=== PATIENT | male | born 1955 | race Caucasian/White ===

== ENCOUNTER 2019-11-15 04:14 | Outpatient (CLI) | payer BC, SELFPAY ==
[2019-11-17 11:43] LABS: Testosterone, Total 72 ng/dL (240-950)
== END 2019-11-15 04:34 ==
PROVIDERS: PCP Family Medicine; Visit Provider Internal Medicine Hematology & Oncology
DX: C61 Malignant neoplasm of prostate (principal)
CPT/HCPCS: 36415; 84403; 84153

== ENCOUNTER 2020-02-23 04:14 | Outpatient (CLI) | payer BC, SELFPAY ==
[2020-02-23 22:22] LABS: PSA, Diagnostic 2.6 ng/mL (0.0-4.5)
== END 2020-02-23 04:34 ==
PROVIDERS: PCP Family Medicine; Visit Provider Internal Medicine Hematology & Oncology
DX: C61 Malignant neoplasm of prostate (principal)
CPT/HCPCS: 36415; 84153

== ENCOUNTER 2020-04-06 12:23 | Outpatient (REF) | payer BC, SELFPAY ==
--- NOTE | 2020-04-06 11:30 | PAPNONF_PTH ---
PATIENT: Arpan Yeh LOC: [facility] U#:[id number] AGE/SX: 64/M ROOM: RE04/06/[address]: Logan Pemberton MD : [id number] BED: DIS: 04/06/2020 SPEC #: [id number] RECD: 04/06/20 17:57 STATUS: ANETA REQ #: [id number] KELSEY: 04/06/20 11:[address]: Logan Pemberton DEPT: [facility] Cytology RECD BY: Miroslava Raymodn ENTERED: 04/06/20 17:58 SP TYPE: JOSE ABREU DR: Wilfrido Parisi Tissues: 1 - BODY FLUID CYTO(SPUTUM/URINE)[facility] Procedures: BODY FLUID CYTO(URINE/SPUTUM) Comments: [id number] (TOTAL VOLUME = 30 ml's) (30 ml's URINE & 30 ml's CYTOLYT ADDED)
[2020-04-06 17:39] LABS: Bilirubin Small (Negative); Blood Large (Negative); Clarity Cloudy (Clear); Glucose Negative (Negative); Ketones Negative (Negative); Leukocyte Esterase Trace (Negative); Nitrite Positive (Negative); Urobilinogen 0.2 EU/dL (Up TO 0.2)
[2020-04-06 17:40] LABS: C & S Indicated? C&S Done As Ordered; RBC >50 HPF (0-2)
== END 2020-04-06 12:43 ==
LOC: LBN 12:23
PROVIDERS: PCP Family Medicine; Referring Provider Nurse Practitioner Gerontology; Visit Provider Urology
DX: R31.0 Gross hematuria (principal); C61 Malignant neoplasm of prostate
CPT/HCPCS: 81003; 81015; 87086; 88104

== ENCOUNTER 2020-04-12 01:20 | Outpatient (CLI) | payer BC, SELFPAY ==
--- NOTE | 2020-04-12 07:00 | DI.CT_ITS ---
EXAM: CT ABDOMEN PELVIS WO/W CLINICAL HISTORY: gross hematuria,R31.0,PROSTATE CA,C61 TECHNIQUE: Imaging Protocol: Axial computed tomography images with coronal and sagittal reformatted images were created and reviewed CONTRAST MATERIAL: Intravenous: Omnipaque 350 Contrast volume:structured data in ml Oral: yes / no COMPARISON: No exams were available for comparison FINDINGS: ABDOMEN: Lung Bases: Normal where visualized. Liver: Normal density. There is a 2.8 by 2 cm hypodense mass seen in the medial segment of the left l obe of the liver. There are several hypodense lesion seen within the liver. They are too small for further characterization but likely reflect small cysts. There is a 2.1 cm cyst in the anterior segm ent of the right lobe of the liver. Portal, Superior Mesenteric, and Splenic Veins: Unremarkable. Gallbladder and Biliary Tract: No radiodense calculus or dilation. Pancreas: Normal density, no abnormal calcifications or inflammatory process. Spleen: Normal. Adrenals: No masses seen. Kidneys: Please see below in the urinary bladder section. No nephrolithiasis. No renal mass. Abdominal Aorta: Abdominal portion non-dilated. Atherosclerosis. Bowel: No evidence of obstruction. There is colonic diverticulosis. There is concentric wall thicke ashley extending from the mid descending colon to the mid sigmoid colon. No evidence of acute appendic itis. Peritoneal Cavity: Please see below in the urinary bladder section. Lymph Nodes: There are enlarged pelvic and inguinal lymph nodes. There is a 2.1 x 3.2 cm left externa l iliac lymph node. The largest inguinal lymph node is on the right and measures 3.0 x 1.8 cm. Bones: There is sclerosis of the posterior aspect of the right 12th rib suspicious for metastasis. De generative changes are seen in the spine. Soft Tissues: Bilateral fat containing inguinal hernia are present. PELVIS: Bladder: The prostate gland is markedly enlarged and impinges upon the base of the urinary bladder. T he prostate gland extends to the pelvic sidewalls. There is marked thickening of the wall of the urin mary bladder secondary to bladder outlet obstruction. There is resultant marked bilateral hydronephros is with delayed enhancement of the kidneys. Bladder diverticula are present. There is infiltration of the soft tissue surrounding the urinary bladder and prostate gland. Reproductive Organs: Please see the urinary bladder section. Lymph Nodes: Please see above. Bones: Please see above. IMPRESSION: 1. Marked enlargement of the prostate gland with impingement onto the base of the urinary bladder. Th e finding is consistent with the patient's known history of prostate carcinoma. 2. Due to the enlarged prostate gland, there is marked thickening of the wall of the urinary bladder and bladder diverticula secondary to bladder outlet obstruction. There is also resultant multiple mar ked bilateral hydronephrosis and delayed enhancement of the kidneys. Inflammatory stranding is seen a round the urinary bladder and an acute cystitis cannot be excluded. 3. Pelvic and inguinal adenopathy suggesting metastatic disease. 4. Sclerotic posterior right 12th rib suspicious for metastasis. 5. 2.8 x 2 cm hypodense lesion in the left lobe of the liver suspicious for metastatic disease. 6. Thickening of the wall of the colon from the discs mid descending colon to the mid sigmoid colon. Differential considerations include infectious or inflammatory colitis or acute diverticulitis. Invol vement related to the adjacent urinary bladder process cannot be excluded. RADIATION DOSE DELIVERED: Total DLP Total DLP DATA REPOSITORY: All CT scans at this facility are submitted to the National Radiology Data Registry (NRDR) Dose Index Registry (DIR) with the [employer] (ACR). RADIATION OPTIMIZATION: All CT scans at this facility use at least one of these dose optimization te chniques: automated exposure control; mA and/or kV adjustment per patient size (includes targeted exa ms where dose is matched to clinical indication); or iterative reconstruction.
[2020-04-12 08:00] LABS: CREATININE 1.25 mg/dL (0.70-1.30); Estimated GFR 58.53 (mL/min/1.73m2)
[2020-04-12] MEDS: Omnipaque 350 MG/ML 100 ML BTL IJ (08:41)
== END 2020-04-12 01:40 ==
PROVIDERS: PCP Family Medicine; Visit Provider Nurse Practitioner Gerontology
DX: R31.0 Gross hematuria (principal); C61 Malignant neoplasm of prostate; R59.0 Localized enlarged lymph nodes
CPT/HCPCS: 74178; 82565; J3490

== ENCOUNTER 2020-04-13 14:45 | Outpatient (CLI) | payer BC, SELFPAY ==
[2020-04-16 11:28] LABS: SARS-CoV-2 RNA Not Detected (NotDetected); SARS-CoV-2 RNA Source Nasal/Nares
== END 2020-04-13 15:05 ==
PROVIDERS: PCP Family Medicine; Visit Provider Nurse Practitioner Gerontology
DX: Z01.818 Encounter for other preprocedural examination (principal); Z11.59 Encounter for screening for other viral diseases
CPT/HCPCS: U0003

== ENCOUNTER 2020-04-17 09:14 | Day surgery (SDC) | payer BC, SELFPAY ==
[2020-04-17 09:20] VITALS: BP 144/83; PULSE 97; RESP 18; TEMP 36.3; O2SAT 98
--- NOTE | 2020-04-17 09:57 | W.PM.HP.N ---
Date of service: 04/17/20 Time of Service: 09:58 Assessment and Plan Assessment and plan (1) Gross hematuria: Status: Acute Assessment and plan: We will plan on a cystoscopy, clot evacuation and fulguration of bleeding sites. With the hydronephrosis seen on his most recent CT scan, it will be interesting to see if I can identify the ureteral orifices cystoscopically. If the hydronephrosis is a new finding (I do not have access to his previous [facility] scans at this time) and I can not find the orifices, he would need to consider placement of bilateral nephrostomy tubes. (2) Prostate cancer: Status: Chronic History of Present Illness History of Present Illness Chief Complaint: Hematuria He presents for cystoscopy with fulguration of bleeding. He espinosa Narrative: Mr. Rao Culver) is a 64 y/o male referred from his PCP to establish care for a local urologist. He has a history of prostate cancer and has been under the care of Dr. Esparza ([facility] hem/onc) and Dr. Topete ([facility] urology). His urology history started last year with difficulties voiding in the spring. He presented with urinary retention and failed medication management and voiding trial. He underwent a TURP in October [address] Topete. Originally the chips from the prostate TURP were thought to be consistent with metastatic high grade urothelial carcinoma. He was referred to Dr. Ontiveros at [facility] urology and then to Dr Esparza for chemotherapy. Pathology was re-read to actually be high-grade prostatic adenocarcimona Gale score 4+5 out of 10. His PSAs until this time were unremarkable. He notes that his PSA went from 3.2 to 14.2ng/ml. He was started on androgen deprivation therapy with Degarelix but had an BRENDEN to the medication that made him very sick and he lost a lot of weight. He has since gained the weight back. He reports that he was when switched to Lupron in the fall of last year due to the BRENDEN of the other medication. He had two 3 month Luprons (Feb and May). July 2019 PSA was 0.2ng/ml thus they held the Lupron. During this time Rick states he was able to void and notes the TURP worked but he was still bleeding/passing clots. He would if a clot was blocking urine flow need to [facility] to remove the clot to void or take a second catheter to [facility] to empty his bladder. He was on Flomax 0.4mg and Proscar 5mg PO QD during this time. November 2019 his PSA was checked and found to be on the rise. It was 2.0ng/ml. PSA was repeated again in December 2019 to be 12.49ng/ml. Lupron 45mg was given in January and PSA repeated last month (February) to be 2.6ng/ml. He is not having skeletal pains. No ABN wt loss. No ABN bleeding/bruising. He has since been evaluated with a CT urogram. He has bilateral hydronephrosis (unsure if this is new or chronic) and impingement on the base of his bladder presumably from his locally aggressive prostate cancer. He also has numerous areas consistent with metastatic disease (again unsure if these are new). He presents for cystoscopy and fulguration of bleeding sites. He has also been asked to check in with heme/onc as he may have had progression of his disease since his last encounter. Review of Systems Narrative: No fevers or chills No vision change or dysphasia No diabetes or thyroid No shortness of breath, cough or hemoptysis No chest pain or palpitations No nausea, vomiting, hepatitis, ulcers, jaundice, diarrhea or constipation No seizures, strokes or peripheral neuropathy No bleeding disorders No gout [facility] Medical History Atopic dermatitis BPH (benign prostatic hyperplasia) with retension Hydrocele Nocturia Prostate cancer Ulcerative (chronic) proctitis Surgical History (Updated 04/17/20 @ 09:51 by Tracie Isidro RN) History of removal of cyst bengn cyst spine w/numbness to LUE History of transurethral resection of prostate Family History (Updated 04/14/20 @ 08:48 by Sue Vidal RN) Other Cancer Social History Smoking/Tobacco Use Status: Former Tobacco Use Smoking risk assessment performed?: Yes Alcohol Intake: current Alcohol Intake frequency: 0-2 drinks per day Drug use: Daily Substance use type: marijuana Do you feel safe at home: Yes Do you feel safe in your relationship?: Yes Meds Home Medications and Allergies Home Medications Medication Instructions Recorded Confirmed Type ascorbate calcium (vitamin C) 500 500 mg PO DAILY 04/06/20 04/13/20 History mg tablet diphenhydramine 25 1 tab PO QHS PRN 04/06/20 04/17/20 History mg-acetaminophen 500 mg tablet finasteride 5 mg tablet 5 mg PO DAILY #90 tab 04/06/20 04/17/20 Rx mesalamine 1.2 gram tablet,delayed 2.4 g PO DAILY 04/06/20 04/17/20 History release tamsulosin 0.4 mg capsule 0.4 mg PO DAILY #90 cap 04/06/20 04/17/20 Rx vitamin B complex 1 tab PO DAILY 04/06/20 04/17/20 History calcium carbonate-vitamin D3 1 tab PO DAILY 04/14/20 04/17/20 History [Calcium 500 + D (D3)] Allergies Allergy/AdvReac Type Severity Reaction Status Date / Time horse serum tetanus Allergy Intermediate Swelling/Ed Uncoded 04/17/20 09:51 debbie Exam Narrative Exam Narrative: He is in no current distress. He is cooperative. His vital signs are documented elsewhere His chest wall motion is normal. He is not short of breath at rest. Lungs are clear Cardiac exam shows a regular rate and rhythm His abdomen is soft with no mass He is awake and alert COVID-19 Screening Have you,or household,traveled outside [place] in last 14 days?: No Had IN PERSON contact w/suspected or confirmed C-19 person: No
[2020-04-17] MEDS: Lactated Ringers 1,000 ML 80 ML IV (10:10)
[2020-04-17] MEDS: ceFAZolin 1 GM/50 ML BAG IVPB (11:56)
[2020-04-17] MEDS: Lidocaine 2% Jelly 11 ML SYR (12:10)
--- NOTE | 2020-04-17 13:01 | W.PM.DSUDISC ---
Discharge Plan Disposition Patient Disposition: HOME Condition: Stable Discharge Details Reason For Visit: GROSS HEMATURIA Attending Provider: Logan Pemberton Primary Care Provider: Wilfrido Parisi Home Meds and New Rx's Prescriptions: New tramadol 50 mg tablet 50 mg PO Q8H PRN (Reason: pain) Qty: 20 RF: 0 No Action mesalamine 1.2 gram tablet,delayed release (DR/EC) 2.4 g PO DAILY RF: 0 ascorbate calcium (vitamin C) 500 mg tablet 500 mg PO DAILY RF: 0 vitamin B complex [B Complex-Vitamin B12] Tablet 1 tab PO DAILY RF: 0 diphenhydramine-acetaminophen [Tylenol PM Extra Strength] 25-500 mg tablet 1 tab PO QHS PRNRF: 0 finasteride 5 mg tablet 5 mg PO DAILY Qty: 90 RF: 3 tamsulosin 0.4 mg capsule 0.4 mg PO DAILY Qty: 90 RF: 3 calcium carbonate-vitamin D3 [Calcium 500 + D (D3)] 500 mg(1,250mg) -125 unit Tablet 1 tab PO DAILY RF: 0 Discharge Instructions Additional Instructions: See to gravity - leg bag Send pt home with supplies to irrigate see at home (saline and irrigation syringe) F/U 1 week for catheter removal and renal us Activity:: Activity as Tolerated Shower/Bathe:: 24 hours Diet:: As Tolerated Discharge Orders Discharge Orders: Discharge Order (Routine); Ordered 04/17/20 Ordered By: Logan Pemberton DS: Diagnosis Discharge Diagnosis (1) Gross hematuria: Status: Acute (2) Prostate cancer: Status: Chronic
--- NOTE | 2020-04-17 13:06 | W.PM.OP ---
Date of service: 04/17/20 Time of Service: 13:06 Operative Note Operative Note DATE OF PROCEDURE: 04/17/20 PRE-OP DIAGNOSIS: Gross hematuria POST-OP DIAGNOSIS: same PROCEDURE: cystoscopy, urethral dilation, clot evacuation, insert see catheter SURGEON: Logan Pemberton ANESTHESIA: other (general without intubation) ESTIMATED BLOOD LOSS: 100 PATHOLOGY: none sent COMPLICATIONS: None Patient was transported to: same day Patient's condition: stable Implants: 18 [place]ran [place] tip see catheter with 10 cc in balloon Indications: This is a 64-year-old gentleman who has a history of adenocarcinoma the prostate. This was discovered on transurethral resection of the prostate. He has been on androgen deprivation therapy. He recently established care at our office with concerns for gross hematuria. He has required intermittent catheterization and the hematuria can occlude his catheters as well. He has been evaluated with a CT urogram which demonstrated bilateral hydronephrosis but no solid renal masses. He presents for cystoscopy with possible fulguration of the lower urinary tract bleeding site. Findings: obliterated prostatic urethra, direct invasion of bladder neck/trigone area multiple clots within bladder Procedure Description: The patient was brought to the operating room on 04/17/2020. He was given preoperative IV antibiotics. After successful induction of general anesthesia without intubation, he was placed in the dorsal lithotomy position. His genitalia is prepped and draped. 2% Xylocaine jelly was instilled into the urethra to act as a local anesthetic. Initially, I attempted to pass a 24 Andorran resectoscope sheath through the urethra into the bladder. I used a visual obturator and a 30 degree lens. The pendulous and bulbous urethra appeared normal. As I approached the membranous urethra and external sphincter, the mucosa became quite irregular and I was unable to see a true lumen in the urethra. I was able to pass a guidewire through the obliterated urethra, but I was unable to pass a scope alongside the wire. I dilated the urethra up to a size 18 Andorran, but could dilate it no further. I was then able to pass a 17 [place]ran cystoscope through the urethra into the bladder. The bladder had numerous clots that were hand irrigated. Inspection of the bladder then revealed replacement of the base of the bladder and trigone area with extension up from the prostate. The dome and posterior wall of the bladder appeared more normal. I did not visualize any specific area to cauterize. I then filled the bladder with irrigant and remove the cystoscope. I passed an 18 [place] tip catheter over the guidewire and positioned the catheter in the bladder. The catheter balloon was inflated with 10 cc of sterile water. The guidewire was then removed. I hand irrigated the catheter to ensure no additional clots were present. The catheter was then hooked to gravity drainage. He tolerated this procedure well. There were no complications. We will plan on reimaging his kidneys with his bladder drained to see if his hydronephrosis improves. If it does not, he would likely require nephrostomy tubes to bypass his bladder.
[2020-04-17] MEDS: traMADol 50 MG TAB PO (13:26)
[2020-04-17 13:37] VITALS: BP 143/86; PULSE 67; RESP 18; TEMP 36.1; O2SAT 98
[2020-04-17 14:20] VITALS: BP 140/82; PULSE 68; RESP 18; TEMP 36.1; O2SAT 100
== END 2020-04-17 14:50 | disposition home or self-care (01) ==
PROVIDERS: PCP Family Medicine; Visit Provider Urology
PROC: 0TBB8ZZ Excision of Bladder, Via Natural or Artificial Opening Endoscopic (ICD-10-PCS; CPT 52001; principal; 2020-04-17 10:45)
DX: R31.0 Gross hematuria (principal); C61 Malignant neoplasm of prostate; N13.30 Unspecified hydronephrosis
CPT/HCPCS: 52001; NC; J0690; J1885; J2001; J2405; J3010

== ENCOUNTER 2020-04-21 03:40 | Outpatient (CLI) | payer BC, SELFPAY ==
--- NOTE | 2020-04-21 07:30 | DI.US_ITS ---
EXAM: US RENAL CLINICAL HISTORY: ? persistent hydronephrosis with bladder drainage?,PROSTATE CA,HEMATURIA,. TECHNIQUE: Nicole scale, color and spectral Doppler were used. COMPARISON: No exams were available for comparison FINDINGS: Renal size in cm: Right: 13. Left: 12.8. Echogenicity: Normal. Hydronephrosis: Moderate bilateral hydronephrosis. Cyst or mass: No. Nephrolithiasis: No. Other findings: None. Bladder:There is a Patel catheter within the urinary bladder. There is diffuse thickening of the wal l of the urinary bladder. Ureteral jets: Right: Not visualized on this examination. Left: Not visualized on this examination. Prevoid vol:72 cc Postvoid vol:0 cc Prostate: 135 cc Renal color flow: Symmetric and within normal limits. IMPRESSION: 1. Marked enlargement of the prostate gland. 2. Diffuse thickening of the wall of the urinary bladder and persistent moderate bilateral hydronephr osis likely all secondary to a prostatic enlargement. 3. Patel catheter is seen within the urinary bladder. DATA REPOSITORY:
== END 2020-04-21 04:00 ==
PROVIDERS: PCP Family Medicine; Visit Provider Urology
DX: C61 Malignant neoplasm of prostate (principal); N13.30 Unspecified hydronephrosis; R31.9 Hematuria, unspecified
CPT/HCPCS: 76770

== ENCOUNTER 2020-04-27 16:40 | Outpatient (REF) | payer BC, SELFPAY ==
[2020-04-27 17:01] LABS: Prothrombin Time 9.9 sec (9.3-11.0)
[2020-04-27 17:35] LABS: Anion Gap 8.7 mmol/L (3-11); BUN 25 mg/dL (7-18); CO2 26.3 mmol/L (21.0-32.0); CREATININE 1.45 mg/dL (0.70-1.30); Calcium 9.7 mg/dL (8.5-10.1); Chloride 106 mmol/L (98-107); Estimated GFR 49.31 (mL/min/1.73m2); Glucose 115 mg/dL (74-106); Potassium 3.8 mmol/L (3.5-5.1); Sodium 141 mmol/L (136-145)
== END 2020-04-27 17:00 ==
LOC: LBN 16:40
PROVIDERS: PCP Family Medicine; Visit Provider Urology
DX: N13.30 Unspecified hydronephrosis (principal); C61 Malignant neoplasm of prostate
CPT/HCPCS: 80048; 85610

== ENCOUNTER 2020-05-01 14:34 | Outpatient (REF) | payer BC, SELFPAY ==
[2020-05-10 12:14] LABS: PSA, Diagnostic 25.4 ng/ml (0-4.5)
== END 2020-05-01 14:54 ==
LOC: LBN 14:34
PROVIDERS: PCP Family Medicine; Visit Provider Urology
DX: C61 Malignant neoplasm of prostate (principal)
CPT/HCPCS: 84153

== ENCOUNTER 2020-05-15 03:07 | Outpatient (CLI) | payer BC, SELFPAY ==
[2020-05-15 10:04] LABS: Abs Immature Grans 0.02 10^3/uL (0.0-0.06); Absolute Basophil Count 0.03 10^3/uL (0.0-0.2); Absolute Eosinophil Count 0.17 10^3/uL (0.0-0.7); Absolute Monocyte Count 0.46 10^3/uL (0.1-0.8); Absolute Neutrophil Count 4.37 10^3/uL (1.2-6.7); Basophils % 0.5; Eosinophils % 2.7; HCT 27.6 % (40.0-50.0); HGB 8.6 g/dL (13.5-17.5); Immature Grans % 0.3; Lymphocytes % 19.2; MCH 28.8 pg (27.0-33.0); MCHC 31.2 % (32.0-36.0); MCV 92.3 fL (80-95); MPV 9.5 fL (8.0-11.0); Monocytes % 7.4; Neutrophils % 69.9; Nucleated RBC 0 %; Platelet Count 349 10^3/uL (130-400); RBC 2.99 10^6/uL (4.36-5.78); RDW 13.3 % (11.8-14.1); RDW-SD 44.6 fL; WBC 6.25 10^3/uL (4.4-10.8)
[2020-05-15 10:52] LABS: ALT 20 U/L (16-63); AST 19 U/L (15-37); Albumin 3.9 g/dL (3.4-5.0); Alkaline Phosphatase 65 U/L (46-116); BUN 17 mg/dL (7-18); Bilirubin, Total 0.2 mg/dL (0.2-1.0); CREATININE 1.24 mg/dL (0.70-1.30); Calcium 8.8 mg/dL (8.5-10.1); Chloride 104 mmol/L (98-107); Estimated GFR 59.07 (mL/min/1.73m2); Glucose 106 mg/dL (74-106); Potassium 4.4 mmol/L (3.5-5.1); Sodium 138 mmol/L (136-145); Total Protein 7.5 g/dL (6.4-8.2)
[2020-05-15 17:25] LABS: PSA, Diagnostic 23.3 ng/mL (0.0-4.5)
== END 2020-05-15 03:27 ==
PROVIDERS: PCP Family Medicine; Visit Provider Internal Medicine Hematology & Oncology
DX: C61 Malignant neoplasm of prostate (principal)
CPT/HCPCS: 36415; 80053; 84153; 85025

== ENCOUNTER 2020-06-12 08:44 | Outpatient (CLI) | payer BC, SELFPAY ==
[2020-06-12 13:36] LABS: Abs Immature Grans 0.03 10^3/uL (0.0-0.06); Absolute Basophil Count 0.05 10^3/uL (0.0-0.2); Absolute Eosinophil Count 0.13 10^3/uL (0.0-0.7); Absolute Lymphocyte Count 1.47 10^3/uL (1.2-3.4); Absolute Monocyte Count 0.54 10^3/uL (0.1-0.8); Absolute Neutrophil Count 5.22 10^3/uL (1.2-6.7); Basophils % 0.7; Eosinophils % 1.7; HCT 28.1 % (40.0-50.0); HGB 8.5 g/dL (13.5-17.5); Immature Grans % 0.4; Lymphocytes % 19.8; MCH 26.2 pg (27.0-33.0); MCHC 30.2 % (32.0-36.0); MCV 86.5 fL (80-95); MPV 9.9 fL (8.0-11.0); Monocytes % 7.3; Neutrophils % 70.1; Nucleated RBC 0 %; Platelet Count 449 10^3/uL (130-400); RBC 3.25 10^6/uL (4.36-5.78); RDW 14.1 % (11.8-14.1); RDW-SD 45.1 fL; WBC 7.44 10^3/uL (4.4-10.8)
[2020-06-12 13:57] LABS: Diff Comment RBC Morph Reviewed
[2020-06-12 13:58] LABS: Hypochromasia 2+; Polychromasia Present
[2020-06-12 14:06] LABS: ALT 16 U/L (16-63); AST 12 U/L (15-37); Albumin 3.7 g/dL (3.4-5.0); Alkaline Phosphatase 79 U/L (46-116); Anion Gap 5.7 mmol/L (3-11); BUN 17 mg/dL (7-18); Bilirubin, Total 0.2 mg/dL (0.2-1.0); CO2 29.3 mmol/L (21.0-32.0); CREATININE 1.03 mg/dL (0.70-1.30); Calcium 9.1 mg/dL (8.5-10.1); Chloride 102 mmol/L (98-107); Glucose 136 mg/dL (74-106); Potassium 3.9 mmol/L (3.5-5.1); Sodium 137 mmol/L (136-145)
[2020-06-12 22:45] LABS: PSA, Diagnostic 21.6 ng/mL (0.0-4.5)
== END 2020-06-12 09:04 ==
PROVIDERS: PCP Family Medicine; Visit Provider Internal Medicine Hematology & Oncology
DX: C61 Malignant neoplasm of prostate (principal)
CPT/HCPCS: 36415; 80053; 84153; 85025

== ENCOUNTER 2020-07-03 01:33 | Outpatient (CLI) | payer BC, SELFPAY ==
[2020-07-03] MEDS: Omnipaque 350 MG/ML 50 ML BTL PO (08:46)
--- NOTE | 2020-07-03 10:03 | DI.CT_ITS ---
EXAM: CT CHEST/ABD/PEL W CLINICAL HISTORY: F/U CT, ? DISEASE PROGRESSION. TECHNIQUE: Imaging Protocol: Axial computed tomography images with coronal and sagittal reformatted images were created and reviewed CONTRAST MATERIAL: Intravenous: Omnipaque 350 Contrast volume:100 ml Oral: Yes COMPARISON: CT CT ABDOMEN PELVIS WO/W from 04/12/2020 FINDINGS: CHEST: LUNGS: There are subpleural benign-appearing increased markings in the lateral basal segment of the l eft lower lobe which appear unchanged from April 2020. There are no new pulmonary infiltrates nor pleural effusions and no new pulmonary nodules evident. There are no significant focal findings in the trachea and mainstem bronchi.. MEDIASTINUM: There is no hilar nor mediastinal adenopathy. No axillary adenopathy. No supraclavicula r adenopathy.Visualized thyroid gland appears to contain nodules. CARDIAC: Heart size is normal. There is no pericardial effusion.Caliber of the thoracic aorta is wit hin normal limits. OSSEOUS: There is a healed left 9th rib fracture noted. No lytic osseous lesions in the chest noted. No blastic osseous lesions evident.. ABDOMEN: There is no ascites. LIVER: The previously described probable metastatic lesion in the left hepatic lobe has significantly increased in size, presently measuring 5 by 4.3 centimetres and exhibiting central hypodensity. Thi s previously measured 2.8 x 2 centimetres. Other smaller and more benign-appearing hypodensities con sistent with cysts are again noted, the largest of these again being located in the right lobe and me asuring 2 centimetres. GALLBLADDER/BILIARY: No obvious gallbladder pathology. CBD is not dilated. PANCREAS: No evidence of pancreatic mass nor dilatation of the pancreatic duct. SPLEEN: Spleen is not enlarged. There are no intrasplenic lesions. Splenic and portal veins are bernstein nt. ADRENALS: There are no significant adrenal masses. KIDNEYS: Both kidneys are now decompressed by the presence of well-positioned bilateral nephrostomy t ubes. The pigtails are in the renal pelves on both sides. There is presently no caliectasis. Some air is seen in the right kidney which is possibly related to catheter care.. No evidence of abscess. No evidence of perinephric fluid collections.. No renal cysts or solid masses evident. ABDOMINAL AORTA: The abdominal aorta is not enlarged. However, there is increasing adenopathy anteri or to and on both sides of the abdominal aorta. The largest of these lymph nodes measures 1.5 by 1.0 cm. ABDOMINAL WALL/GI: No evidence of significant anterior abdominal wall hernia. There is no bowel obst ruction although there does appear to be a probable mass at the ileocecal valve now evident. The ora l contrast has progressed to the a patent flexure junction with the fecal filled transverse colon but not beyond this level. This delay progression most probably related to the abundant fecal material at and distal to this point in the colon. There also appears to be a possible colitis pattern in the sigmoid and rectosigmoid. There is also some multifocal mural thickening in the ascending-right col on noted but this may or may not be related to muscle thickening. PELVIS: LYMPH NODES: There is bilateral inguinal adenopathy evident which has slightly increased. GI: No evidence of appendicitis.No evidence of sigmoid diverticulitis. URINARY BLADDER/prostate: Grossly thickened urinary bladder wall is either due to diffuse neoplasm or chronic cystitis and is intimately related with the very abnormal a appearing and enlarged prostate gland which itself is suspicious for malignancy. Prostate gland appearance is unchanged and appears to invade the bladder. There is, however, no obvious obturator adenopathy. OSSEOUS: Subtle sclerotic density in the anterior aspect of T12 vertebral body is noted, possibly jaleesa stic. Also increasing density in the posterior aspect of L1 vertebral body suspicious for blastic me tastases. IMPRESSION: 1. Although there are no new significant intrathoracic findings, the size of the metastatic lesion in the left hepatic lobe has significantly increased, presently measuring 5 x 4.3 centimetres, previous ly measuring 2.8 x 2.0 [address]imetres on the prior CT scan of April 2020. This appears to remain a s olitary lesion in the liver, with the remaining findings in the liver having appearance of benign cys ts ranging up to 2 centimeters in size. 2. Both kidneys are now decompressed by well-positioned nephrostomy tubes. No evidence of perinephri c hematoma. No abscess. Some air is seen in the right kidney which is probably related to catheter maintenance. 3. There is increasing para-aortic adenopathy. Also bilateral inguinal adenopathy. 4. Blastic osseous lesions now evident in L1 and T12 vertebral bodies. 5. There is a mass at the ileocecal valve which is suspicious for malignancy. However, there is no bowel obstruction at this level. In addition, there are focal mural thickening in the ascending-righ t colon which are somewhat suspicious although may be related to muscular hypertrophy. There is a transition point in the caliber of the colon at the junction of the hepatic flexure and pr oximal transverse colon. The colon distal to this level is filled with fecal material and of larger caliber and the oral contrast has stopped at this level. However, I doubt that there is a true bowel obstruction at this level and findings are most probably related to an element of constipation at an d distal to this level in the colon. There is no ascites and there are no pleural effusions. RADIATION DOSE DELIVERED: 1,818.17mGy.cm Total DLP DATA REPOSITORY: All CT scans at this facility are submitted to the National Radiology Data Registry (NRDR) Dose Index Registry (DIR) with the [employer] (ACR). RADIATION OPTIMIZATION: All CT scans at this facility use at least one of these dose optimization te chniques: automated exposure control; mA and/or kV adjustment per patient size (includes targeted exa ms where dose is matched to clinical indication); or iterative reconstruction.
[2020-07-03] MEDS: Normal Saline - Diluent 50 ML VIAL IV (11:24)
[2020-07-03] MEDS: Omnipaque 350 MG/ML 100 ML BTL IJ (11:25)
== END 2020-07-03 01:53 ==
PROVIDERS: PCP Family Medicine
DX: C78.7 Secondary malignant neoplasm of liver and intrahepatic bile duct (principal); R59.0 Localized enlarged lymph nodes; C79.51 Secondary malignant neoplasm of bone; C61 Malignant neoplasm of prostate
CPT/HCPCS: 74177; 71260; J3490; Q9967

== ENCOUNTER 2020-07-18 02:40 | Outpatient (CLI) | payer BC, SELFPAY ==
[2020-07-18 12:50] LABS: Abs Immature Grans 0.05 10^3/uL (0.0-0.06); Absolute Basophil Count 0.04 10^3/uL (0.0-0.2); Absolute Eosinophil Count 0.11 10^3/uL (0.0-0.7); Absolute Neutrophil Count 8.77 10^3/uL (1.2-6.7); Basophils % 0.4; HCT 26.9 % (40.0-50.0); Immature Grans % 0.4; Lymphocytes % 13.5; MCH 23.3 pg (27.0-33.0); MCHC 29.7 % (32.0-36.0); MCV 78.4 fL (80-95); MPV 9.2 fL (8.0-11.0); Monocytes % 5.8; Neutrophils % 78.9; Nucleated RBC 0 %; Platelet Count 497 10^3/uL (130-400); RBC 3.43 10^6/uL (4.36-5.78); RDW-SD 42.7 fL; WBC 11.12 10^3/uL (4.4-10.8)
[2020-07-18 12:51] LABS: Absolute Monocyte Count 0.64 10^3/uL (0.1-0.8)
[2020-07-18 13:16] LABS: Anisocytosis 1+; Diff Comment RBC Morph Reviewed
[2020-07-18 13:49] LABS: ALT 15 U/L (16-63); AST 18 U/L (15-37); Albumin 3.7 g/dL (3.4-5.0); Alkaline Phosphatase 99 U/L (46-116); Anion Gap 11.8 mmol/L (3-11); BUN 11 mg/dL (7-18); Bilirubin, Total 0.3 mg/dL (0.2-1.0); CO2 24.2 mmol/L (21.0-32.0); Calcium 9.4 mg/dL (8.5-10.1); Chloride 101 mmol/L (98-107); Glucose 123 mg/dL (74-106); Potassium 4.2 mmol/L (3.5-5.1); Sodium 137 mmol/L (136-145); Total Protein 7.7 g/dL (6.4-8.2)
[2020-07-18 22:30] LABS: PSA, Diagnostic 52.4 ng/mL (0.0-4.5)
== END 2020-07-18 02:41 | disposition home or self-care (01) ==
LOC: LBO 02:40
PROVIDERS: PCP Family Medicine; Visit Provider Internal Medicine Hematology & Oncology
DX: C61 Malignant neoplasm of prostate (principal)
CPT/HCPCS: 36415; 80053; 84153; 85025

== ENCOUNTER 2020-08-23 02:23 | Outpatient (CLI) | payer BC, SELFPAY ==
[2020-08-23 11:54] LABS: Abs Immature Grans 0.05 10^3/uL (0.0-0.06); Absolute Basophil Count 0.04 10^3/uL (0.0-0.2); Absolute Eosinophil Count 0.13 10^3/uL (0.0-0.7); Absolute Lymphocyte Count 1.53 10^3/uL (1.2-3.4); Absolute Monocyte Count 0.62 10^3/uL (0.1-0.8); Absolute Neutrophil Count 8.26 10^3/uL (1.2-6.7); Basophils % 0.4; Eosinophils % 1.2; Immature Grans % 0.5; Lymphocytes % 14.4; MCH 20.9 pg (27.0-33.0); MCHC 28.7 % (32.0-36.0); MCV 72.9 fL (80-95); MPV 9.4 fL (8.0-11.0); Monocytes % 5.8; Neutrophils % 77.7; Nucleated RBC 0 %; Platelet Count 511 10^3/uL (130-400); RBC 2.77 10^6/uL (4.36-5.78); RDW-SD 42.4 fL; WBC 10.63 10^3/uL (4.4-10.8)
[2020-08-23 12:14] LABS: HCT 20.2 % (40.0-50.0); HGB 5.8 g/dL (13.5-17.5)
[2020-08-23 12:28] LABS: Hypochromasia 3+; Microcytosis 3+; Polychromasia Present
[2020-08-23 12:29] LABS: Poikilocytes 2+
[2020-08-23 12:30] LABS: Diff Comment Agrees w/ Instrument
[2020-08-23 12:48] LABS: ALT 14 U/L (16-63); AST 27 U/L (15-37); Alkaline Phosphatase 124 U/L (46-116); Anion Gap 8.7 mmol/L (3-11); BUN 10 mg/dL (7-18); Bilirubin, Total 0.3 mg/dL (0.2-1.0); CO2 27.3 mmol/L (21.0-32.0); CREATININE 1.1 mg/dL (0.70-1.30); Calcium 9.1 mg/dL (8.5-10.1); Chloride 102 mmol/L (98-107); Glucose 110 mg/dL (74-106); Potassium 3.8 mmol/L (3.5-5.1); Sodium 138 mmol/L (136-145); Total Protein 7.3 g/dL (6.4-8.2)
== END 2020-08-23 02:24 | disposition home or self-care (01) ==
LOC: LBO 02:23
PROVIDERS: PCP Family Medicine; Visit Provider Internal Medicine Hematology & Oncology
DX: C61 Malignant neoplasm of prostate (principal)
CPT/HCPCS: 36415; 80053; 84153; 85025

== ENCOUNTER 2020-09-04 09:16 | Outpatient (CLI) | payer BC, SELFPAY ==
[2020-09-04 15:49] LABS: Abs Immature Grans 0.07 10^3/uL (0.0-0.06); Absolute Basophil Count 0.06 10^3/uL (0.0-0.2); Absolute Monocyte Count 0.68 10^3/uL (0.1-0.8); Basophils % 0.5; Eosinophils % 0.6; HCT 22.4 % (40.0-50.0); Immature Grans % 0.6; Lymphocytes % 9.5; MCH 22.6 pg (27.0-33.0); MCHC 29.9 % (32.0-36.0); MCV 75.4 fL (80-95); MPV 8.6 fL (8.0-11.0); Monocytes % 5.4; Neutrophils % 83.4; Nucleated RBC 0 %; Platelet Count 549 10^3/uL (130-400); RBC 2.97 10^6/uL (4.36-5.78); RDW 20.3 % (11.8-14.1); RDW-SD 54.8 fL; Reticulocyte 1.5 % (0.5-2.4); WBC 12.58 10^3/uL (4.4-10.8)
[2020-09-04 16:50] LABS: Iron 11 ug/dL (65-175); Total Iron Binding Capacity 240 ug/dL (250-450); Transferrin Sat 5 % (20-55)
[2020-09-04 17:19] LABS: Absolute Eosinophil Count 0.08 10^3/uL (0.0-0.7); Absolute Neutrophil Count 10.49 10^3/uL (1.2-6.7)
[2020-09-04 17:21] LABS: Magnesium 2.3 mg/dL (1.8-2.4)
[2020-09-04 17:22] LABS: HGB 6.7 g/dL (13.5-17.5)
[2020-09-04 17:24] LABS: Anisocytosis 1+; Diff Comment Agrees w/ Instrument
[2020-09-04 17:25] LABS: Hypochromasia 1+; Microcytosis 2+
[2020-09-04 17:28] LABS: ALT 19 U/L (16-63); AST 24 U/L (15-37); Albumin 2.6 g/dL (3.4-5.0); Alkaline Phosphatase 131 U/L (46-116); Anion Gap 9.8 mmol/L (3-11); BUN 11 mg/dL (7-18); Bilirubin, Total 0.3 mg/dL (0.2-1.0); CO2 27.2 mmol/L (21.0-32.0); CREATININE 0.9 mg/dL (0.70-1.30); Calcium 8.3 mg/dL (8.5-10.1); Chloride 99 mmol/L (98-107); Ferritin 56 ng/mL (26-388); Glucose 108 mg/dL (74-106); Potassium 4.3 mmol/L (3.5-5.1); Sodium 136 mmol/L (136-145); Vitamin B12 1657 pg/mL (193-986)
[2020-09-04 17:29] LABS: Folate > 20.0 ng/mL (8.6-20.0)
[2020-09-06 14:29] LABS: PSA, Ultrasensitive 55.1 ng/mL (<= 4.5)
== END 2020-09-04 09:17 | disposition home or self-care (01) ==
LOC: LBO 09:20
PROVIDERS: Internal Medicine Medical Oncology; PCP Family Medicine; Visit Provider Internal Medicine Hematology & Oncology
DX: C61 Malignant neoplasm of prostate (principal); C78.7 Secondary malignant neoplasm of liver and intrahepatic bile duct; D50.0 Iron deficiency anemia secondary to blood loss (chronic)
CPT/HCPCS: 36415; 80053; 84153; 82607; 82728; 82746; 83540; 83550; 83735; 85025; 85045

== ENCOUNTER 2020-09-06 02:26 | Outpatient (RCR) | payer BC, SELFPAY ==
[2020-08-25] VITALS (13 sets, daily range): BP systolic 125–152; BP diastolic 64–78; PULSE 73–95; RESP 16–22; TEMP 36.3–38.1; O2SAT 98–100
[2020-08-25] MEDS: diphenhydrAMINE 25 MG CAP PO (08:40)
[2020-08-25] MEDS: Acetaminophen 325 MG TAB 650 MG PO (08:41)
[2020-08-25] MEDS: Normal Saline Flush 10 ML SYR IVP (08:48)
[2020-08-25 15:03] LABS: Abs Immature Grans 0.06 10^3/uL (0.0-0.06); Absolute Basophil Count 0.05 10^3/uL (0.0-0.2); Absolute Eosinophil Count 0.13 10^3/uL (0.0-0.7); Absolute Lymphocyte Count 1.42 10^3/uL (1.2-3.4); Absolute Monocyte Count 0.69 10^3/uL (0.1-0.8); Absolute Neutrophil Count 9.03 10^3/uL (1.2-6.7); Basophils % 0.4; Eosinophils % 1.1; HGB 7.5 g/dL (13.5-17.5); Immature Grans % 0.5; Lymphocytes % 12.5; MCH 23.3 pg (27.0-33.0); MCHC 30.4 % (32.0-36.0); MCV 76.7 fL (80-95); MPV 9.2 fL (8.0-11.0); Monocytes % 6.1; Neutrophils % 79.4; Nucleated RBC 0 %; Platelet Count 433 10^3/uL (130-400); RBC 3.22 10^6/uL (4.36-5.78); RDW 18.2 % (11.8-14.1); RDW-SD 50.9 fL; WBC 11.37 10^3/uL (4.4-10.8)
[2020-08-25 15:05] LABS: HCT 24.7 % (40.0-50.0)
[2020-09-06 08:20] VITALS: BP 124/63; PULSE 103; RESP 22; O2SAT 98
[2020-09-06 09:15] VITALS: TEMP 39.4
== END 2020-09-06 23:59 | disposition home or self-care (01) ==
LOC: INF 02:26
PROVIDERS: PCP Family Medicine; Visit Provider Internal Medicine Hematology & Oncology
DX: D50.0 Iron deficiency anemia secondary to blood loss (chronic) (principal); C61 Malignant neoplasm of prostate
CPT/HCPCS: 36415; 36430; 86850; 86900; 86901; 86920; 85025; P9016

== ENCOUNTER 2020-09-06 09:50 | Inpatient (IN) | payer BC, SELFPAY ==
[2020-09-06] VITALS (47 sets, daily range): BP systolic 134–174; BP diastolic 59–84; PULSE 82–120; RESP 16–30; TEMP 35.9–38.3; O2SAT 96–100
--- NOTE | 2020-09-06 09:53 | ED.GENADUL_ITS ---
Discharge Plan Disposition [facility] Condition: Stable Discharge Details Clinical Impression: Fever, UTI (urinary tract infection), History of prostate cancer, Liver metast ases Admit Date/Time: 09/06/20 13:04 Admit Provider: Mo Hand Attending Provider: Mo Hand Primary Care Provider: Wilfrido Parisi ED Provider: Betty Rasheed Discharge Data Discharge Date/Time-TO BE ENTERED AT DEPARTURE: 09/06/20 15:05 Medical Decision Making 64-year-old male with a history of prostate cancer and bilateral nephrostomy tubes followed by Dr. Pemberton and [facility] urology presents from the infusion c enter where he was scheduled to get a blood transfusion today but referred to the ED instead due to a fever upon arrival to the infusion center. Temp 39 at the infusion center. Oral temp on arrival to the ED 100.6. Patient admits to dyspnea on exertion and fatigue but was unaware of having a fever. Normal oxygen saturation. Lungs clear. Nephrostomy tubes in place without signs of cellulitis. No other signs of skin cellulitis noted. Differential diagnosis includes UTI, pyelonephritis, also consider coronavirus, bacteremia. Will place an IV, screening labs, urinalysis, CT chest abdomen pelvis. Case discussed with Susy Bolton and she advised obtaining a urine sample from the nephrostomy tubes as well as a voiding sample and agrees with plan for admission for fever and they will consult with patient. Labs and imaging reviewed. White blood cell count 12.88. Hemoglobin 5.8, di scussed with lab and able to release the 2 units of blood to the ED to start. Lactate 1.2. Both urine samples note nitrite and greater than [address] reviewed with radiologist. No PE or pneumonia. There is severe progression of metastatic liver disease. There is also question of neoplastic disease versus infection within the bladder but no gas noted. Case discussed with hospitalist accepts patient for admission. Meropenem ordered. Medical Records Medical records reviewed: Yes I reviewed the patient's medical records. Imaging Data Radiologic Study: Radiologist's impression: CT CHEST PE ABD PELVIS W CLINICAL HISTORY: sob w/ exertion, cough, fever/nephrostomy tubes. TECHNIQUE: Imaging Protocol: Axial CT angiography was performed with multi- slice acquisition and multi-planar and/or 3D reconstructions. CONTRAST MATERIAL: Intravenous: Omnipaque 350 Contrast volume:100 ml Oral: None COMPARISON: CT CT CHEST/ABD/PEL W from 07/03/2020 FINDINGS: CHEST: PULMONARY ARTERIES: There are no intra-arterial filling defects to suggest the presence of acute pulmonary emboli. LUNGS: There are no metastatic nodules in either lung field. There are no pleural effusions. Mild subpleural infiltrate is seen in the superior lingular segment of the left lung, unchanged from the previous study. MEDIASTINUM: There is no hilar nor mediastinal adenopathy. Visualized thyroid unremarkable. CARDIAC: Heart size is normal. There is no pericardial effusion. There is no significant shift of the interventricular septum.Thoracic aorta appears unremarkable. No dissection. No enlargement. OSSEOUS: No acute fractures evident.. ABDOMEN: There is no ascites. LIVER: There multiple metastatic lesions throughout both hepatic lobes, also involving the caudate. These have significantly increased in size and number. There is also a stable 2 by 1.8 centimeter cyst in the right hepatic lobe. GALLBLADDER/BILIARY: No obvious gallbladder pathology. CBD is not dilated. PANCREAS: No evidence of pancreatic mass nor dilatation of the pancreatic duct. SPLEEN: Spleen is not enlarged. There are no intrasplenic lesions. Splenic and portal veins are patent. ADRENALS: There are no significant adrenal masses. KIDNEYS:Both kidneys remain decompressed by well-positioned bilateral nephrostomy tubes. The pigtails are in the bilateral renal pelves. No hydronephrosis. No intrarenal calculi. No solid renal masses. No perinephric fluid collections. No perinephric hematoma nor infectious appearing findings along the subcutaneous course of the bilateral nephrostomy tubes.. ABDOMINAL AORTA: Atherosclerotic. Para-aortic adenopathy again noted, relatively stable although 1 of the left para-aortic lymph nodes now measures 2.5 by 1.3 cm, increased in size. LYMPH NODES: Adenopathy as described above. ABDOMINAL WALL/GI: No evidence of significant anterior abdominal wall hernia. Previously described findings in the right side of the colon are somewhat difficult to compare because breast study was done without oral contrast. However, this area does not appear very suspicious on the present study. PELVIS: LYMPH NODES: There is no intrapelvic nor inguinal adenopathy. GI: No evidence of appendicitis.No evidence of sigmoid diverticulitis. URINARY BLADDER: Again grossly abnormal due to diffuse neoplasm and again very abnormal enlarged prostate gland with contiguous invasion of the urinary bladder. Possibly also invasion of posterior wall of the rectum. This abnormal tissue in the bladder and prostate are contiguous with heterogeneous density. It is difficult to determine necrotic tumor from abscess. However, there is no gas within these tissues evident. REPRODUCTIVE: As above. OSSEOUS: Subtle sclerotic density noted in T12 vertebral body which is possibly blastic. Also subtle increased density in the posterior aspect of L1 vertebral body which actually appears less evident than on the prior study, possibly related to treatment. IMPRESSION: 1. No evidence of acute pulmonary emboli nor pulmonary infarction. 2. There are no pleural effusions.Small area of subpleural infiltrate in the lingular segment of the left lung appears unchanged. 3. Severe progression of metastatic liver disease with increasing size and number of metastatic lesions now throughout both lobes.. 4. Also mildly increasing para-aortic adenopathy 5. 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 The large massive tissue in this region is heterogeneous including hypodense areas which are probably necrotic. Difficult to determine necrotic tumor from infection but there is no gas within these tissues evident. 6. Both kidneys remain decompressed by well-positioned bilateral nephrostomy tubes. 7. There is no ascites. There are no pleural effusions. Lab Data Lab results reviewed: Yes I reviewed the patient's lab results. Labs: 09/06/20 11:57 Urine - Reflex from Ua Urine Culture - Pending 09/06/20 11:35 Urine - Reflex from Ua Urine Culture - Pending 09/06/20 10:30 Blood Blood Culture - Pending 09/06/20 10:45 Blood Blood Culture - Pending Laboratory Tests Range/Units 09/06/20 09/06/20 09/06/20 08:10 10:20 10:20 WBC (4.4-10.8) 10^3/uL RBC (4.36-5.78) 10^6/uL Hgb (13.5-17.5) g/dL Hct (40.0-50.0) % MCV (80-95) fL MCH (27.0-33.0) pg MCHC (32.0-36.0) % RDW (11.8-14.1) % Plt Count (130-400) 10^3/uL MPV (8.0-11.0) fL Immature Gran % Neutrophils % Lymphocytes % Monocytes % Eosinophils % Basophils % Nucleated RBC % % Absolute Neutrophils (1.2-6.7) 10^3/uL Absolute Lymphocytes (1.2-3.4) 10^3/uL Absolute Monocytes (0.1-0.8) 10^3/uL Absolute Eosinophils (0.0-0.7) 10^3/uL Absolute Basophils (0.0-0.2) 10^3/uL RBC Morphology Polychromasia Hypochromasia Poikilocytosis Anisocytosis Microcytosis VBG Lactate (0.6-1.4) mmol/L 1.2 Sodium (136-145) mmol/L 132 L Potassium (3.5-5.1) mmol/L 3.5 Chloride (98-107) mmol/L 99 Carbon Dioxide (21.0-32.0) mmol/L 26.7 Anion Gap (3-11) mmol/L 6.3 BUN (7-18) mg/dL 10 Creatinine (0.70-1.30) mg/dL 0.9 Estimated GFR/1.73 m2 (mL/min/1.73m2) >= 60.00 Glucose (74-106) mg/dL 103 Calcium (8.5-10.1) mg/dL 8.2 L Total Bilirubin (0.2-1.0) mg/dL 0.4 AST (15-37) U/L 21 ALT (16-63) U/L 16 Alkaline Phosphatase (46-116) U/L 122 H Total Protein (6.4-8.2) g/dL 7.3 Albumin (3.4-5.0) g/dL 2.4 L Urine Color (Yellow) Urine Clarity (Clear) Urine pH (5-8) Ur Specific [place] (1.005-1.025) Urine Protein (Negative) mg/dL Urine Ketones (Negative) mg/dL Urine Blood (Negative) Urine Nitrite (Negative) Urine Bilirubin (Negative) Urine Urobilinogen (Up TO 0.2) EU/dL Ur Leukocyte Esterase (Negative) Urine RBC (0-2) HPF Urine WBC (0-5) HPF Ur Epithelial Cells (Negative) HPF Urine Crystals (Negative) HPF Urine Bacteria (Negative) HPF Urine Casts (Negative) LPF Urine Mucus (Negative) Urine Other (Negative) Ur Culture Indicated? Urine Glucose (Negative) mg/dL Patient ABO/Rh O Positive Antibody Screen Negative Crossmatch See Detail Range/Units 09/06/20 09/06/20 09/06/20 10:20 11:35 11:57 WBC (4.4-10.8) 10^3/uL 12.88 H RBC (4.36-5.78) 10^6/uL 2.58 L Hgb (13.5-17.5) g/dL 5.8 L* Hct (40.0-50.0) % 19.3 L* MCV (80-95) fL 74.8 L MCH (27.0-33.0) pg 22.5 L MCHC (32.0-36.0) % 30.1 L RDW (11.8-14.1) % 20.2 H Plt Count (130-400) 10^3/uL 499 H MPV (8.0-11.0) fL 8.8 Immature Gran % 0.5 Neutrophils % 83.0 Lymphocytes % 9.4 Monocytes % 6.1 Eosinophils % 0.8 Basophils % 0.2 Nucleated RBC % % 0 Absolute Neutrophils (1.2-6.7) 10^3/uL 10.69 H Absolute Lymphocytes (1.2-3.4) 10^3/uL 1.21 Absolute Monocytes (0.1-0.8) 10^3/uL 0.79 Absolute Eosinophils (0.0-0.7) 10^3/uL 0.10 Absolute Basophils (0.0-0.2) 10^3/uL 0.03 RBC Morphology See below Polychromasia Present Hypochromasia 3+ Poikilocytosis 2+ Anisocytosis 2+ Microcytosis 3+ VBG Lactate (0.6-1.4) mmol/L Sodium (136-145) mmol/L Potassium (3.5-5.1) mmol/L Chloride (98-107) mmol/L Carbon Dioxide (21.0-32.0) mmol/L Anion Gap (3-11) mmol/L BUN (7-18) mg/dL Creatinine (0.70-1.30) mg/dL Estimated GFR/1.73 m2 (mL/min/1.73m2) Glucose (74-106) mg/dL Calcium (8.5-10.1) mg/dL Total Bilirubin (0.2-1.0) mg/dL AST (15-37) U/L ALT (16-63) U/L Alkaline Phosphatase (46-116) U/L Total Protein (6.4-8.2) g/dL Albumin (3.4-5.0) g/dL Urine Color (Yellow) Yellow Red Urine Clarity (Clear) Cloudy Turbid Urine pH (5-8) 7.0 8.5 H Ur Specific [place] (1.005-1.025) 1.020 1.020 Urine Protein (Negative) mg/dL 100 H >=300 H Urine Ketones (Negative) mg/dL Negative Negative Urine Blood (Negative) Trace-intact H Large H Urine Nitrite (Negative) Positive H Positive H Urine Bilirubin (Negative) Negative Moderate H Urine Urobilinogen (Up TO 0.2) EU/dL 0.2 0.2 Ur Leukocyte Esterase (Negative) Moderate H Small H Urine RBC (0-2) HPF 3-5 H >50 H Urine WBC (0-5) HPF >50 H >50 H Ur Epithelial Cells (Negative) HPF Few Not Applicable Urine Crystals (Negative) HPF Negative Not Applicable Urine Bacteria (Negative) HPF Many Not Applicable Urine Casts (Negative) LPF Negative Urine Mucus (Negative) Moderate Not Applicable Urine Other (Negative) Negative Ur Culture Indicated? Yes Yes Urine Glucose (Negative) mg/dL Negative Negative Patient ABO/Rh Antibody Screen Crossmatch Range/Units 09/06/20 12:29 WBC (4.4-10.8) 10^3/uL RBC (4.36-5.78) 10^6/uL Hgb (13.5-17.5) g/dL Hct (40.0-50.0) % MCV (80-95) fL MCH (27.0-33.0) pg MCHC (32.0-36.0) % RDW (11.8-14.1) % Plt Count (130-400) 10^3/uL MPV (8.0-11.0) fL Immature Gran % Neutrophils % Lymphocytes % Monocytes % Eosinophils % Basophils % Nucleated RBC % % Absolute Neutrophils (1.2-6.7) 10^3/uL Absolute Lymphocytes (1.2-3.4) 10^3/uL Absolute Monocytes (0.1-0.8) 10^3/uL Absolute Eosinophils (0.0-0.7) 10^3/uL Absolute Basophils (0.0-0.2) 10^3/uL RBC Morphology Polychromasia Hypochromasia Poikilocytosis Anisocytosis Microcytosis VBG Lactate (0.6-1.4) mmol/L Sodium (136-145) mmol/L Potassium (3.5-5.1) mmol/L Chloride (98-107) mmol/L Carbon Dioxide (21.0-32.0) mmol/L Anion Gap (3-11) mmol/L BUN (7-18) mg/dL Creatinine (0.70-1.30) mg/dL Estimated GFR/1.73 m2 (mL/min/1.73m2) Glucose (74-106) mg/dL Calcium (8.5-10.1) mg/dL Total Bilirubin (0.2-1.0) mg/dL AST (15-37) U/L ALT (16-63) U/L Alkaline Phosphatase (46-116) U/L Total Protein (6.4-8.2) g/dL Albumin (3.4-5.0) g/dL Urine Color (Yellow) Urine Clarity (Clear) Urine pH (5-8) Ur Specific [place] (1.005-1.025) Urine Protein (Negative) mg/dL Urine Ketones (Negative) mg/dL Urine Blood (Negative) Urine Nitrite (Negative) Urine Bilirubin (Negative) Urine Urobilinogen (Up TO 0.2) EU/dL Ur Leukocyte Esterase (Negative) Urine RBC (0-2) HPF Urine WBC (0-5) HPF Ur Epithelial Cells (Negative) HPF Urine Crystals (Negative) HPF Urine Bacteria (Negative) HPF Urine Casts (Negative) LPF Urine Mucus (Negative) Urine Other (Negative) Ur Culture Indicated? Urine Glucose (Negative) mg/dL Patient ABO/Rh Cancelled Antibody Screen Crossmatch See Detail HPI General Mode of arrival: ambulatory . Date/Time Provider Initiated Documentation: 09/06/20 09:50 . Limitations to Documentation: no limitations . Information obtained by: patient . HPI Narrative: Patient is a 64-year-old male with a history of prostate cancer, BPH, TURP and bilateral nephrostomy tubes followed by Dr. Pemberton as well as [facility] nephrology who presents after sent by the infusion center for fever. Patient went to the infusion center this morning for transfusion of 2 units of blood for a hemoglobin of 6.7 yesterday. When patient was noted to have a temperature of 39 on arrival to the infusion center, he was sent to the ER for further evaluation. Patient states he was unaware of having a fever. He states he has been short of breath with exertion for the past few days which he attributed to his low hemoglobin which he has had in the past. He states he had recent blood transfusion in the last few weeks and was having dizziness and shortness of breath with exertion which improved after his blood transfusion. Patient states he has chronic bleeding associated with his prostate cancer. He states he has felt tired for the past few days but denies any vomiting, cough, chest pain, abdominal pain or back pain. He denies any recent travel, known exposure to coronavirus. Related Data Home Medications Medication Instructions Recorded Confirmed ascorbate calcium (vitamin C) 500 500 mg PO DAILY 04/06/20 09/06/20 mg tablet diphenhydramine 25 1 tab PO QHS PRN 04/06/20 09/06/20 mg-acetaminophen 500 mg tablet finasteride 5 mg tablet 5 mg PO DAILY #90 tab 04/06/20 09/06/20 mesalamine 1.2 gram tablet,delayed 2.4 g PO DAILY 04/06/20 09/06/20 release tamsulosin 0.4 mg capsule 0.4 mg PO DAILY #90 cap 04/06/20 09/06/20 vitamin B complex 1 tab PO DAILY 04/06/20 09/06/20 calcium carbonate-vitamin D3 1 tab PO DAILY 04/14/20 09/06/20 tramadol 50 mg PO Q8H PRN #20 tab 04/17/20 09/06/20 abiraterone 500 mg PO QDAY 09/06/20 09/06/20 prednisone 5 mg PO QDAY 09/06/20 09/06/20 Previous Rx's Medication Instructions Recorded finasteride 5 mg tablet 5 mg PO DAILY #90 tab 04/06/20 tamsulosin 0.4 mg capsule 0.4 mg PO DAILY #90 cap 04/06/20 tramadol 50 mg PO Q8H PRN #20 tab 04/17/20 Allergies Allergy/AdvReac Type Severity Reaction Status Date / Time horse serum tetanus Allergy Intermediate Swelling/Ed Uncoded 09/06/20 10:14 debbie Review of Systems All systems reviewed & are unremarkable except as noted in HPI and below Constitutional Constitutional: Reports as per HPI, Denies chills, Reports fatigue, Reports fever(s) and Reports lethargy Eyes Eyes: Denies blurry vision ENT Ears, Nose, Mouth, and Throat: Denies dizziness, Denies sore throat and Denies throat swelling Cardiovascular Cardiovascular: Denies chest pain and Reports dyspnea on exertion Respiratory Respiratory: Denies cough and Reports dyspnea on exertion Gastrointestinal Gastrointestinal: Denies abdominal pain, Denies diarrhea and Denies vomiting Genitourinary Genitourinary: Reports hematuria and Denies dysuria Musculoskeletal Musculoskeletal: Denies back pain and Denies numbness Integumentary/Breasts Skin/Breast: Denies lesions and Denies rash Neurologic Neurologic: Denies dizziness, Denies localized weakness and Denies numbness Endocrine Endocrine: Reports fatigue Allergic/Immunologic Allergic/Immunologic: Denies throat swelling [facility] Medical History (Updated 09/07/20 @ 16:47 by Betty Rasheed DO) Atopic dermatitis BPH (benign prostatic hyperplasia) with retension Hydrocele Hydronephrosis Nocturia Prostate cancer Ulcerative (chronic) proctitis Surgical History (Updated 04/17/20 @ 09:51 by Tracie Isidro RN) History of removal of cyst bengn cyst spine w/numbness to LUE History of transurethral resection of prostate Family History (Updated 04/14/20 @ 08:48 by Sue Vidal RN) Other Cancer Social History Smoking/Tobacco Use Status: Former Tobacco Use Quit Date: 08/07/89 Smoking risk assessment performed?: Yes Alcohol Intake: current Alcohol Intake frequency: 0-2 drinks per day Drug use: Daily Substance use type: marijuana Details: medical marinjuana for nausea Do you feel safe at home: Yes Do you feel safe in your relationship?: Yes Exam Const General: cooperative and no acute distress Orientation: alert, awake and oriented x3 HENMT Head: normal to inspection Face and sinus: normal facial exam Eyes General: appearance normal, both eyes and all related structures EOM: EOM intact bilaterally Neck Neck: normal visual inspection and No submandibular swelling Lymphatic: no lymphadenopathy noted Chest Chest: normal inspection of the chest and no tenderness Resp Effort & Inspection: normal respiratory effort and able to speak in complete sentences Auscultation: clear to auscultation bilaterally Cardio Rate: regular rate Rhythm: regular rhythm GI Inspection: normal to inspection Palpation: soft, not firm, not rigid and nontender Auscultation: normal bowel sounds Male General Exam: Yes normal external exam Back/Spine/Pelvis Back/spine/pelvis image: 1. Nephrostomy tube in place, no signs of cellulitis. 2. Nephrostomy tube in place, no signs of cellulitis. Skin General skin exam: no rashes or lesions noted and pallor Neuro General: patient alert, patient awake and patient oriented x3 Cognition: normal cognition Speech: speech normal Motor: muscle tone normal throughout Sensory Exam: no sensory deficits noted Extrem General: normal to inspection, full ROM, capillary refill normal, no calf tenderness bilaterally and no edema Psych Appearance: grossly normal Mental Status: mental status grossly normal Speech and Movement: speech and movement normal Affect: normal affect Course Lab/Test Results Lab/Test Results: 09/06/20 09:51 Blood Blood Culture - Pending 09/06/20 09:51 Blood Blood Culture - Pending
[2020-09-06 10:29] LABS: Abs Immature Grans 0.07 10^3/uL (0.0-0.06); Absolute Basophil Count 0.03 10^3/uL (0.0-0.2); Absolute Lymphocyte Count 1.21 10^3/uL (1.2-3.4); Absolute Monocyte Count 0.79 10^3/uL (0.1-0.8); Basophils % 0.2; Eosinophils % 0.8; Immature Grans % 0.5; Lactate 1.2 mmol/L (0.6-1.4); Lymphocytes % 9.4; MCH 22.5 pg (27.0-33.0); MCHC 30.1 % (32.0-36.0); MCV 74.8 fL (80-95); MPV 8.8 fL (8.0-11.0); Monocytes % 6.1; Nucleated RBC 0 %; Platelet Count 499 10^3/uL (130-400); RBC 2.58 10^6/uL (4.36-5.78); RDW 20.2 % (11.8-14.1); RDW-SD 54.6 fL; WBC 12.88 10^3/uL (4.4-10.8)
[2020-09-06 10:40] LABS: Absolute Neutrophil Count 10.69 10^3/uL (1.2-6.7)
[2020-09-06 10:44] LABS: HCT 19.3 % (40.0-50.0); HGB 5.8 g/dL (13.5-17.5)
[2020-09-06 10:48] LABS: ALT 16 U/L (16-63); AST 21 U/L (15-37); Albumin 2.4 g/dL (3.4-5.0); Alkaline Phosphatase 122 U/L (46-116); Anion Gap 6.3 mmol/L (3-11); BUN 10 mg/dL (7-18); Bilirubin, Total 0.4 mg/dL (0.2-1.0); CO2 26.7 mmol/L (21.0-32.0); CREATININE 0.9 mg/dL (0.70-1.30); Calcium 8.2 mg/dL (8.5-10.1); Chloride 99 mmol/L (98-107); Glucose 103 mg/dL (74-106); Potassium 3.5 mmol/L (3.5-5.1); Sodium 132 mmol/L (136-145); Total Protein 7.3 g/dL (6.4-8.2)
[2020-09-06 10:51] LABS: Anisocytosis 2+; Diff Comment Diff Reviewed; Hypochromasia 3+; Microcytosis 3+; Polychromasia Present
[2020-09-06 10:52] LABS: Poikilocytes 2+
[2020-09-06] MEDS: ACETAMINOPHEN 1,000 MG/100 ML BTL 400 MG IVPB (11:18)
[2020-09-06] MEDS: Normal Saline 500 ML IV ×2 (11:19→12:44)
[2020-09-06 11:42] LABS: Bilirubin Negative (Negative); Blood Trace-intact (Negative); Clarity Cloudy (Clear); Glucose Negative (Negative); Ketones Negative (Negative); Leukocyte Esterase Moderate (Negative); Nitrite Positive (Negative); Urobilinogen 0.2 EU/dL (Up TO 0.2)
[2020-09-06 11:52] LABS: Bacteria Many HPF (Negative); Crystals Negative HPF (Negative); Epithelial Cells Few HPF (Negative); Other Cells Negative (Negative); WBC >50 HPF (0-5)
[2020-09-06 11:53] LABS: C & S Indicated? Yes; Casts Negative LPF (Negative); Mucus Moderate (Negative)
--- NOTE | 2020-09-06 12:05 | DI.CT_ITS ---
EXAM: CT CHEST PE ABD PELVIS W CLINICAL HISTORY: sob w/ exertion, cough, fever/nephrostomy tubes. TECHNIQUE: Imaging Protocol: Axial CT angiography was performed with multi-slice acquisition and m ulti-planar and/or 3D reconstructions. CONTRAST MATERIAL: Intravenous: Omnipaque 350 Contrast volume:100 ml Oral: None COMPARISON: CT CT CHEST/ABD/PEL W from 07/03/2020 FINDINGS: CHEST: PULMONARY ARTERIES: There are no intra-arterial filling defects to suggest the presence of acute pulm onary emboli. LUNGS: There are no metastatic nodules in either lung field. There are no pleural effusions. Mild s ubpleural infiltrate is seen in the superior lingular segment of the left lung, unchanged from the pr evious study. MEDIASTINUM: There is no hilar nor mediastinal adenopathy. Visualized thyroid unremarkable. CARDIAC: Heart size is normal. There is no pericardial effusion. There is no significant shift of t he interventricular septum.Thoracic aorta appears unremarkable. No dissection. No enlargement. OSSEOUS: No acute fractures evident.. ABDOMEN: There is no ascites. LIVER: There multiple metastatic lesions throughout both hepatic lobes, also involving the caudate. These have significantly increased in size and number. There is also a stable 2 by 1.[address] in the right hepatic lobe. GALLBLADDER/BILIARY: No obvious gallbladder pathology. CBD is not dilated. PANCREAS: No evidence of pancreatic mass nor dilatation of the pancreatic duct. SPLEEN: Spleen is not enlarged. There are no intrasplenic lesions. Splenic and portal veins are bernstein nt. ADRENALS: There are no significant adrenal masses. KIDNEYS:Both kidneys remain decompressed by well-positioned bilateral nephrostomy tubes. The pigtail s are in the bilateral renal pelves. No hydronephrosis. No intrarenal calculi. No solid renal mass es. No perinephric fluid collections. No perinephric hematoma nor infectious appearing findings mone ng the subcutaneous course of the bilateral nephrostomy tubes.. ABDOMINAL AORTA: Atherosclerotic. Para-aortic adenopathy again noted, relatively stable although 1 o f the left para-aortic lymph nodes now measures 2.5 by 1.3 cm, increased in size. LYMPH NODES: Adenopathy as described above. ABDOMINAL WALL/GI: No evidence of significant anterior abdominal wall hernia. Previously described f indings in the right side of the colon are somewhat difficult to compare because breast study was don e without oral contrast. However, this area does not appear very suspicious on the present study. PELVIS: LYMPH NODES: There is no intrapelvic nor inguinal adenopathy. GI: No evidence of appendicitis.No evidence of sigmoid diverticulitis. URINARY BLADDER: Again grossly abnormal due to diffuse neoplasm and again very abnormal enlarged pros hansen gland with contiguous invasion of the urinary bladder. Possibly also invasion of posterior wall of the rectum. This abnormal tissue in the bladder and prostate are contiguous with heterogeneous d ensity. It is difficult to determine necrotic tumor from abscess. However, there is no gas within t hese tissues evident. REPRODUCTIVE: As above. OSSEOUS: Subtle sclerotic density noted in T12 vertebral body which is possibly blastic. Also subtle increased density in the posterior aspect of L1 vertebral body which actually appears less evident t hinojosa on the prior study, possibly related to treatment. IMPRESSION: 1. No evidence of acute pulmonary emboli nor pulmonary infarction. 2. There are no pleural effusions.Small area of subpleural infiltrate in the lingular segment of the left lung appears unchanged. 3. Severe progression of metastatic liver disease with increasing size and number of metastatic lesio ns now throughout both lobes.. 4. Also mildly increasing para-aortic adenopathy 5. 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 The large massive tis gayla in this region is heterogeneous including hypodense areas which are probably necrotic. Difficult to determine necrotic tumor from infection but there is no gas within these tissues evident. 6. Both kidneys remain decompressed by well-positioned bilateral nephrostomy tubes. 7. There is no ascites. There are no pleural effusions. Report called by myself to the ER provider RADIATION DOSE DELIVERED: 1,285.49mGy.cm Total DLP DATA REPOSITORY: All CT scans at this facility are submitted to the National Radiology Data Registry (NRDR) Dose Index Registry (DIR) with the [employer] [place] [employer] ([employer]). RADIATION OPTIMIZATION: All CT scans at this facility use at least one of these dose optimization te chniques: automated exposure control; mA and/or kV adjustment per patient size (includes targeted exa ms where dose is matched to clinical indication); or iterative reconstruction.
[2020-09-06] MEDS: Normal Saline - Diluent 50 ML VIAL IV (12:14)
[2020-09-06] MEDS: Omnipaque 350 MG/ML 100 ML BTL IJ (12:14)
[2020-09-06] MEDS: Normal Saline Flush 10 ML SYR IVP ×6 (12:16→21:18)
[2020-09-06 12:17] LABS: Bilirubin Moderate (Negative); Blood Large (Negative); Clarity Turbid (Clear); Glucose Negative (Negative); Ketones Negative (Negative); Leukocyte Esterase Small (Negative); Nitrite Positive (Negative); Urobilinogen 0.2 EU/dL (Up TO 0.2); pH 8.5 (5-8)
[2020-09-06 12:21] LABS: RBC >50 HPF (0-2); WBC >50 HPF (0-5)
[2020-09-06 12:22] LABS: C & S Indicated? Yes
--- NOTE | 2020-09-06 13:02 | HPE_ITS ---
Date of service: 09/06/20 Time of Service: 13:02 Assessment and Plan Assessment and plan (1) UTI (urinary tract infection): Status: Acute Assessment and plan: cultures pending. started on imipenem day 1. (2) Anemia, blood loss: Status: Acute Assessment and plan: d/t gross hematuria and mets prostate cancer receiving 2 units of PRBC, no blood thinners or NSAIDs. recheck labs in am was to receive IV iron which we can provide inpatient (3) Prostate cancer: Status: Chronic Assessment and plan: with known liver mets. followed by oupatient by [facility] cancer center history of high-grade adenocarcinoma of the prostate. He was first diagnosed on a transurethral resection of the prostate specimen. Initially, his tumor was thought to be high-grade urothelial cell carcinoma, but ultimately was found to be prostate cancer in origin. switched to palliative Zytiga from Xtandi because of his PSA rising in july 2020. He is also on Lupron. last inject on 08/02/[address] fish office, next dose due in 3 months from that time. PSA today 55.1 (ultra-sensitive with reference range <=4.5) up from 48 on 08/23/20. today CT: IMPRESSION: 1. No evidence of acute pulmonary emboli nor pulmonary infarction. 2. There are no pleural effusions.Small area of subpleural infiltrate in the lingular segment of the left lung appears unchanged. 3. Severe progression of metastatic liver disease with increasing size and number of metastatic lesions now throughout both lobes.. 4. Also mildly increasing para-aortic adenopathy 5. 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 The large massive tissue in this region is heterogeneous including hypodense ar eas which are probably necrotic. Difficult to determine necrotic tumor from infection but there is no gas within these tissues evident. 6. Both kidneys remain decompressed by well-positioned bilateral nephrostomy tubes. 7. There is no ascites. There are no pleural effusions. was followed by [facility], now by [facility] palliative consult (4) Hydronephrosis: Status: Acute Assessment and plan: bilateral nephrostomy tube in place and functioning well no evidence of obstruction by CT followed by dr barnes, changed at [facility] end of july (5) DVT prophylaxis: Status: Acute Assessment and plan: TEDS and SCDs in setting of acute bleeding (6) Discharge planning issues: Status: Acute Assessment and plan: anticipate discharge to home when medically stable. no services anticipated code status discussed with patient and he wishes to remain a full code on this hospitalization. Palliative care consult placed. discharge discussed with DR Hand History of Present Illness History of Present Illness Chief Complaint: fever Narrative: referred to ED from outpatient IV clinic for fever. Patient with history of prostate cancer and hematuria who was scheduled to get blood transfusion found to have a fever. work up in the ED concerning for a UTI. he was scanned in ED which is concerning for liver mets. he is to be admitted to hospitalist for further management. he was not symptomatic and unaware that he was febrile. Review of Systems All systems reviewed & are unremarkable except as noted in HPI and below PFSH Medical History (Updated 09/06/20 @ 15:43 by Bridget Lerma NP) Atopic dermatitis BPH (benign prostatic hyperplasia) with retension Hydrocele Hydronephrosis Nocturia Prostate cancer Ulcerative (chronic) proctitis Surgical History (Updated 04/17/20 @ 09:51 by Tracie Isidro RN) History of removal of cyst bengn cyst spine w/numbness to LUE History of transurethral resection of prostate Family History (Updated 04/14/20 @ 08:48 by Seu Vidal RN) Other Cancer Social History Smoking/Tobacco Use Status: Former Tobacco Use Quit Date: 08/07/89 Smoking risk assessment performed?: Yes Alcohol Intake: current Alcohol Intake frequency: 0-2 drinks per day Drug use: Daily Substance use type: marijuana Details: medical [facility] for nausea Do you feel safe at home: Yes Do you feel safe in your relationship?: Yes Meds Home Medications and Allergies Allergies Allergy/AdvReac Type Severity Reaction Status Date / Time horse serum tetanus Allergy Intermediate Swelling/Ed Uncoded 09/06/20 10:14 debbie Home Medications Medication Instructions Recorded Confirmed Type ascorbate calcium (vitamin C) 500 500 mg PO DAILY 04/06/20 09/06/20 History mg tablet diphenhydramine 25 1 tab PO QHS PRN 04/06/20 09/06/20 History mg-acetaminophen 500 mg tablet finasteride 5 mg tablet 5 mg PO DAILY #90 tab 04/06/20 09/06/20 Rx mesalamine 1.2 gram tablet,delayed 2.4 g PO DAILY 04/06/20 09/06/20 History release tamsulosin 0.4 mg capsule 0.4 mg PO DAILY #90 cap 04/06/20 09/06/20 Rx vitamin B complex 1 tab PO DAILY 04/06/20 09/06/20 History calcium carbonate-vitamin D3 1 tab PO DAILY 04/14/20 09/06/20 History [Calcium 500 + D (D3)] tramadol 50 mg PO Q8H PRN #20 tab 04/17/20 09/06/20 Rx abiraterone 500 mg PO QDAY 09/06/20 09/06/20 History prednisone 5 mg PO QDAY 09/06/20 09/06/20 History Exam Narrative Exam Narrative: pale warm dry and in no acute distress head atraumatic normocephalic neck: no JVD resp: even and unlabored CV: regular rate and rhythm abd: round, benign ext: TRUJILLO no edema Results Labs Result diagrams: 09/06/20 10:20 09/06/20 10:20 Labs: Laboratory Results - last 24 hr 09/06/20 09/06/20 09/06/20 08:10 10:20 10:20 WBC RBC Hgb Hct MCV MCH MCHC RDW Plt Count MPV Immature Gran % Neutrophils % Lymphocytes % Monocytes % Eosinophils % Basophils % Nucleated RBC % Absolute Neutrophils Absolute Lymphocytes Absolute Monocytes Absolute Eosinophils Absolute Basophils RBC Morphology Polychromasia Hypochromasia Poikilocytosis Anisocytosis Microcytosis VBG Lactate 1.2 Sodium 132 L Potassium 3.5 Chloride 99 Carbon Dioxide 26.7 Anion Gap 6.3 BUN 10 Creatinine 0.9 Estimated GFR/1.73 m2 >= 60.00 Glucose 103 Calcium 8.2 L Total Bilirubin 0.4 AST 21 ALT 16 Alkaline Phosphatase 122 H Total Protein 7.3 Albumin 2.4 L Urine Color Urine Clarity Urine pH Ur Specific [place] Urine Protein Urine Ketones Urine Blood Urine Nitrite Urine Bilirubin Urine Urobilinogen Ur Leukocyte Esterase Urine RBC Urine WBC Ur Epithelial Cells Urine Crystals Urine Bacteria Urine Casts Urine Mucus Urine Other Ur Culture Indicated? Urine Glucose Patient ABO/Rh O Positive Antibody Screen Negative Crossmatch See Detail 09/06/20 09/06/20 09/06/20 10:20 11:35 11:57 WBC 12.88 H RBC 2.58 L Hgb 5.8 L* Hct 19.3 L* MCV 74.8 L MCH 22.5 L MCHC 30.1 L RDW 20.2 H Plt Count 499 H MPV 8.8 Immature Gran % 0.5 Neutrophils % 83.0 Lymphocytes % 9.4 Monocytes % 6.1 Eosinophils % 0.8 Basophils % 0.2 Nucleated RBC % 0 Absolute Neutrophils 10.69 H Absolute Lymphocytes 1.21 Absolute Monocytes 0.79 Absolute Eosinophils 0.10 Absolute Basophils 0.03 RBC Morphology See below Polychromasia Present Hypochromasia 3+ Poikilocytosis 2+ Anisocytosis 2+ Microcytosis 3+ VBG Lactate Sodium Potassium Chloride Carbon Dioxide Anion Gap BUN Creatinine Estimated GFR/1.73 m2 Glucose Calcium Total Bilirubin AST ALT Alkaline Phosphatase Total Protein Albumin Urine Color Yellow Red Urine Clarity Cloudy Turbid Urine pH 7.0 8.5 H Ur Specific [place] 1.020 1.020 Urine Protein 100 H >=300 H Urine Ketones Negative Negative Urine Blood Trace-intact H Large H Urine Nitrite Positive H Positive H Urine Bilirubin Negative Moderate H Urine Urobilinogen 0.2 0.2 Ur Leukocyte Esterase Moderate H Small H Urine RBC 3-5 H >50 H Urine WBC >50 H >50 H Ur Epithelial Cells Few Not Applicable Urine Crystals Negative Not Applicable Urine Bacteria Many Not Applicable Urine Casts Negative Urine Mucus Moderate Not Applicable Urine Other Negative Ur Culture Indicated? Yes Yes Urine Glucose Negative Negative Patient ABO/Rh Antibody Screen Crossmatch 09/06/20 12:29 WBC RBC Hgb Hct MCV MCH MCHC RDW Plt Count MPV Immature Gran % Neutrophils % Lymphocytes % Monocytes % Eosinophils % Basophils % Nucleated RBC % Absolute Neutrophils Absolute Lymphocytes Absolute Monocytes Absolute Eosinophils Absolute Basophils RBC Morphology Polychromasia Hypochromasia Poikilocytosis Anisocytosis Microcytosis VBG Lactate Sodium Potassium Chloride Carbon Dioxide Anion Gap BUN Creatinine Estimated GFR/1.73 m2 Glucose Calcium Total Bilirubin AST ALT Alkaline Phosphatase Total Protein Albumin Urine Color Urine Clarity Urine pH Ur Specific [place] Urine Protein Urine Ketones Urine Blood Urine Nitrite Urine Bilirubin Urine Urobilinogen Ur Leukocyte Esterase Urine RBC Urine WBC Ur Epithelial Cells Urine Crystals Urine Bacteria Urine Casts Urine Mucus Urine Other Ur Culture Indicated? Urine Glucose Patient ABO/Rh Cancelled Antibody Screen Crossmatch See Detail Last Vital Signs Temp 37.4 C 09/06/20 11:18 Pulse 95 H 09/06/20 10:31 Resp 24 03/31/21 10:31 BP 144/63 H 09/06/20 10:31 Pulse Ox 98 09/06/20 10:31 COVID-19 Screening Have you, or household traveled for leisure in last 14 days?: No Had IN PERSON contact w/suspected or confirmed C-19 person: No
[2020-09-06] MEDS: MEROPENEM 1 GM in Normal Saline 100 ML IVPB ×2 (13:26→21:17)
[2020-09-06] MEDS: diphenhydrAMINE 50 MG/ML VIAL 25 MG IVP (13:37)
[2020-09-06 14:22] LABS: COVID-19 PCR Negative (Negative)
--- NOTE | 2020-09-06 15:18 | NUR.NOTE ---
Nursing Note: 09/06/20 1518 Pt transfered to MS room 210 with blood running. No issues noted. Pt asymptomatic. VSS. Handed off and blood rechecked with Low Devi RN, who accepts patient and blood at this time.
[2020-09-06] MEDS: predniSONE 5 MG TAB PO (16:38)
[2020-09-06] MEDS: Furosemide 20 MG/2 ML VIAL 10 MG IVP (16:57)
[2020-09-06] MEDS: Ondansetron 4 MG/2 ML VIAL IVP (17:33)
[2020-09-06] MEDS: FERRIC CARBOXYMALTOSE 750 MG in Normal Saline 250 ML 999 MG IVPB (17:55)
[2020-09-06] MEDS: Acetaminophen 500 MG TAB PO (20:09)
[2020-09-06] MEDS: diphenhydrAMINE 25 MG CAP PO (20:10)
[2020-09-06] MEDS: Tamsulosin 0.4 MG CAPCR PO (21:17)
[2020-09-06] MEDS: Finasteride 5 MG TAB PO (21:17)
--- NOTE | 2020-09-07 02:12 | NUR.NOTE ---
at 1950, VS checked and temp was 38.3C, with ongoing second unit of PRBC Blood transfusion. RN temporarily stopped Blood transfusion, MD informed by CC, ordered to continue Blood transfusion and will order meds. RN administered tylenol and Benadryl as ordered, VS rechecked after 15 mins and after an hour post blood transfusion, VS stable, temp normalized to 37.2Nursing Note:
[2020-09-07] MEDS: Normal Saline Flush 10 ML SYR IVP (05:28)
[2020-09-07] MEDS: MEROPENEM 1 GM in Normal Saline 100 ML IVPB (05:28)
[2020-09-07] MEDS: Acetaminophen 500 MG TAB PO (05:35)
[2020-09-07 05:39] VITALS: BP 159/75; PULSE 81; RESP 18; TEMP 36.7; O2SAT 98
[2020-09-07 07:16] LABS: HCT 23.6 % (40.0-50.0); HGB 7.3 g/dL (13.5-17.5); MCH 23.7 pg (27.0-33.0); MCHC 30.9 % (32.0-36.0); MCV 76.6 fL (80-95); MPV 9.2 fL (8.0-11.0); Platelet Count 466 10^3/uL (130-400); RBC 3.08 10^6/uL (4.36-5.78); RDW 19.9 % (11.8-14.1); RDW-SD 55.4 fL; WBC 12.51 10^3/uL (4.4-10.8)
--- NOTE | 2020-09-07 08:43 | W.UROLOGYCON ---
Date of service: 09/07/20 Time of Service: 08:43 Assessment and Plan Assessment and plan (1) UTI (urinary tract infection): Status: Acute Assessment and plan: I would be fine with the patient being discharged if he can be given an antibiotic dose that would last another 24 hours. By tomorrow, his culture and sensitivity should be available and I can switch him to oral antibiotics if need be. It may be that his fever is not infectious at all (although we certainly need to rule that out). 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 (2) Prostate cancer: Status: Chronic (3) Gross hematuria: Status: Acute (4) Hydronephrosis: Status: Acute History of Present Illness History of Present Illness Chief Complaint: Febrile illness Narrative: This is a 64-year-old gentleman who has a history of metastatic prostate cancer. He was initially diagnosed in 2018 when he developed urinary retention. He underwent a transurethral resection of the prostate at [facility]. The initial pathology was interpreted as high-grade urothelial cell carcinoma. 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 His Gale grade was 5+4 out of 10. He was started on androgen deprivation, but his tumor has progressed. He moved closer to this area, so I first saw him in February of this past year. He was having gross hematuria, and I suspected he may have prostate bleeding. When I did his cystoscopy, his lower tract anatomy was completely distorted. Both ureteral orifices were occluded as the tumor had invaded the bladder base. We had bilateral nephrostomy tubes placed by interventional radiology at [facility]. Plans were made for these tubes to be changed every 3 months or so. We contacted his oncologist back at the [facility]. Mr. Yeh has tried additional therapies for his prostate, but his tumor has progressed. He is now considering chemotherapy and it would be much easier for him to have his treatments here in [place]. Earlier this week, he established care with an oncologist at the [facility]. Mr. Yeh has a history of anemia and low iron levels. He has required blood transfusions and iron infusions. He was scheduled for such a transfusion yesterday. When he presented to the infusion center, he was found to be febrile. His Covid test was negative, but with his chronic nephrostomy tubes, there was concern that he might have a urinary tract infection. He was admitted for IV antibiotics. He did not have any chills overnight He has a history of ulcerative colitis and chronic nausea. He has tried many treatments for the nausea, but the only thing that seems to work is inhaled medical marijuana. He is not able to use such as treatment as an inpatient, and his nausea has been poorly controlled. He is hoping to be able to go home today to restart his anti-nausea therapy [facility] Medical History (Updated 09/06/20 @ 15:43 by Bridget Lerma NP) Atopic dermatitis BPH (benign prostatic hyperplasia) with retension Hydrocele Hydronephrosis Nocturia Prostate cancer Ulcerative (chronic) proctitis Surgical History (Updated 04/17/20 @ 09:51 by Tracie Isidro RN) History of removal of cyst bengn cyst spine w/numbness to LUE History of transurethral resection of prostate Family History (Updated 04/14/20 @ 08:48 by Sue Vidal RN) Other Cancer Social History Smoking/Tobacco Use Status: Former Tobacco Use Quit Date: 08/07/89 Smoking risk assessment performed?: Yes Alcohol Intake: current Alcohol Intake frequency: 0-2 drinks per day Drug use: Daily Substance use type: marijuana Details: medical [facility] for nausea Do you feel safe at home: Yes Do you feel safe in your relationship?: Yes Exam Narrative Exam Narrative: He appears chronic ill His vital signs are documented elsewhere The urine from his nephrostomy tubes is clear The voided urine is grossly bloody He is awake and alert Results Last Vital Signs Temp 36.7 C 09/07/20 05:39 Pulse 81 09/07/20 05:39 Resp 18 09/07/20 05:39 BP 159/75 H 09/07/20 05:39 Pulse Ox 98 09/07/20 05:39 Labs Result diagrams: 09/07/20 06:22 09/06/20 10:20 Labs: Laboratory Results - last 24 hr 09/06/20 09/06/20 09/06/20 08:10 10:20 10:20 WBC RBC Hgb Hct MCV MCH MCHC RDW Plt Count MPV Immature Gran % Neutrophils % Lymphocytes % Monocytes % Eosinophils % Basophils % Nucleated RBC % Absolute Neutrophils Absolute Lymphocytes Absolute Monocytes Absolute Eosinophils Absolute Basophils RBC Morphology Polychromasia Hypochromasia Poikilocytosis Anisocytosis Microcytosis VBG Lactate 1.2 Sodium 132 L Potassium 3.5 Chloride 99 Carbon Dioxide 26.7 Anion Gap 6.3 BUN 10 Creatinine 0.9 Estimated GFR/1.73 m2 >= 60.00 Glucose 103 Calcium 8.2 L Total Bilirubin 0.4 AST 21 ALT 16 Alkaline Phosphatase 122 H Total Protein 7.3 Albumin 2.4 L Urine Color Urine Clarity Urine pH Ur Specific [place] Urine Protein Urine Ketones Urine Blood Urine Nitrite Urine Bilirubin Urine Urobilinogen Ur Leukocyte Esterase Urine RBC Urine WBC Ur Epithelial Cells Urine Crystals Urine Bacteria Urine Casts Urine Mucus Urine Other Ur Culture Indicated? Urine Glucose COVID-19 Source SARS-CoV-2 (PCR) Patient ABO/Rh O Positive Antibody Screen Negative Crossmatch See Detail Reaction Clerical Check Clerical Work Check Pre-Trans Blood Type Pre-Trans Bld Appearanc Pre-Trans JAYDA Post-Trans Blood Type Post-Trans Spec Appear Post-Trans JAYDA Reaction Pathol Review 09/06/20 09/06/20 09/06/20 10:20 11:35 11:57 WBC 12.88 H RBC 2.58 L Hgb 5.8 L* Hct 19.3 L* MCV 74.8 L MCH 22.5 L MCHC 30.1 L RDW 20.2 H Plt Count 499 H MPV 8.8 Immature Gran % 0.5 Neutrophils % 83.0 Lymphocytes % 9.4 Monocytes % 6.1 Eosinophils % 0.8 Basophils % 0.2 Nucleated RBC % 0 Absolute Neutrophils 10.69 H Absolute Lymphocytes 1.21 Absolute Monocytes 0.79 Absolute Eosinophils 0.10 Absolute Basophils 0.03 RBC Morphology See below Polychromasia Present Hypochromasia 3+ Poikilocytosis 2+ Anisocytosis 2+ Microcytosis 3+ VBG Lactate Sodium Potassium Chloride Carbon Dioxide Anion Gap BUN Creatinine Estimated GFR/1.73 m2 Glucose Calcium Total Bilirubin AST ALT Alkaline Phosphatase Total Protein Albumin Urine Color Yellow Red Urine Clarity Cloudy Turbid Urine pH 7.0 8.5 H Ur Specific [place] 1.020 1.020 Urine Protein 100 H >=300 H Urine Ketones Negative Negative Urine Blood Trace-intact H Large H Urine Nitrite Positive H Positive H Urine Bilirubin Negative Moderate H Urine Urobilinogen 0.2 0.2 Ur Leukocyte Esterase Moderate H Small H Urine RBC 3-5 H >50 H Urine WBC >50 H >50 H Ur Epithelial Cells Few Not Applicable Urine Crystals Negative Not Applicable Urine Bacteria Many Not Applicable Urine Casts Negative Urine Mucus Moderate Not Applicable Urine Other Negative Ur Culture Indicated? Yes Yes Urine Glucose Negative Negative COVID-19 Source SARS-CoV-2 (PCR) Patient ABO/Rh Antibody Screen Crossmatch Reaction Clerical Check Clerical Work Check Pre-Trans Blood Type Pre-Trans Bld [place] Pre-Trans JAYDA Post-Trans Blood Type Post-Trans Spec Appear Post-Trans JAYDA Reaction Pathol Review 09/06/20 09/06/20 09/06/20 12:29 13:10 22:37 WBC RBC Hgb Hct MCV MCH MCHC RDW Plt Count MPV Immature Gran % Neutrophils % Lymphocytes % Monocytes % Eosinophils % Basophils % Nucleated RBC % Absolute Neutrophils Absolute Lymphocytes Absolute Monocytes Absolute Eosinophils Absolute Basophils RBC Morphology Polychromasia Hypochromasia Poikilocytosis Anisocytosis Microcytosis VBG Lactate Sodium Potassium Chloride Carbon Dioxide Anion Gap BUN Creatinine Estimated GFR/1.73 m2 Glucose Calcium Total Bilirubin AST ALT Alkaline Phosphatase Total Protein Albumin Urine Color Urine Clarity Urine pH Ur Specific [place] Urine Protein Urine Ketones Urine Blood Urine Nitrite Urine Bilirubin Urine Urobilinogen Ur Leukocyte Esterase Urine RBC Urine WBC Ur Epithelial Cells Urine Crystals Urine Bacteria Urine Casts Urine Mucus Urine Other Ur Culture Indicated? Urine Glucose COVID-19 Source Nasopharyx SARS-CoV-2 (PCR) Negative Patient ABO/Rh Cancelled Antibody Screen Crossmatch See Detail Reaction Clerical Check Cancelled Clerical Work Check Cancelled Pre-Trans Blood Type Cancelled Pre-Trans Bld Appearanc Cancelled Pre-Trans JAYDA Cancelled Post-Trans Blood Type Cancelled Post-Trans Spec Appear Cancelled Post-Trans JAYDA Cancelled Reaction Pathol Review Cancelled 09/06/20 09/07/20 22:37 06:22 WBC 12.51 H RBC 3.08 L Hgb 7.3 L Hct 23.6 L D MCV 76.6 L MCH 23.7 L MCHC 30.9 L RDW 19.9 H Plt Count 466 H MPV 9.2 Immature Gran % Neutrophils % Lymphocytes % Monocytes % Eosinophils % Basophils % Nucleated RBC % Absolute Neutrophils Absolute Lymphocytes Absolute Monocytes Absolute Eosinophils Absolute Basophils RBC Morphology Polychromasia Hypochromasia Poikilocytosis Anisocytosis Microcytosis VBG Lactate Sodium Potassium Chloride Carbon Dioxide Anion Gap BUN Creatinine Estimated GFR/1.73 m2 Glucose Calcium Total Bilirubin AST ALT Alkaline Phosphatase Total Protein Albumin Urine Color Urine Clarity Urine pH Ur Specific [place] Urine Protein Urine Ketones Urine Blood Urine Nitrite Urine Bilirubin Urine Urobilinogen Ur Leukocyte Esterase Urine RBC Urine WBC Ur Epithelial Cells Urine Crystals Urine Bacteria Urine Casts Urine Mucus Urine Other Ur Culture Indicated? Urine Glucose COVID-19 Source SARS-CoV-2 (PCR) Patient ABO/Rh Antibody Screen Crossmatch Reaction Clerical Check Cancelled Clerical Work Check Cancelled Pre-Trans Blood Type Cancelled Pre-Trans Bld Appearanc Cancelled Pre-Trans JAYDA Cancelled Post-Trans Blood Type Cancelled Post-Trans Spec Appear Cancelled Post-Trans JAYDA Cancelled Reaction Pathol Review Cancelled
--- NOTE | 2020-09-07 08:44 | DSE_ITS ---
Date of service: 09/07/20 Time of Service: 08:44 DS: Diagnosis Discharge Diagnosis (1) Fever: Status: Acute Asessment and Plan: white count flat at 12 urine possibly chronically infected d/t nephrostomy tubes urine culture pending no tachy or hypotension possibly tumor fever (2) UTI (urinary tract infection): Status: Acute Asessment and Plan: cultures are pending. received imipenem in the ED and received one dose of ertapenem prior to discharge to cover him over next day when culture reports should be available. Dr Barnes is to follow this and down- step to appropriate antibiotic. (3) Anemia, blood loss: Status: Acute Asessment and Plan: d/t hematuria. received 2 units of PRBC with hemoglobin up to 7.3/23.6 from 5.8/19.3 received IV iron injectafer 750 mg, scheduled for another infusion on 09/13/20 at outpatient clinic (4) Prostate cancer: Status: Chronic Asessment and Plan: followed by oupatient by [facility] cancer center, has appointment on FridaySeptember 11 history of high-grade adenocarcinoma of the prostate. He was first diagnosed on a transurethral resection of the prostate specimen. Initially, his tumor was thought to be high-grade urothelial cell carcinoma, but ultimately was found to be prostate cancer in origin. switched to palliative Zytiga from Xtandi because of his PSA rising in july 2020. He is also on Lupron. last inject on 08/02/[address] fish office, next dose due in 3 months from that time. PSA today 55.1 (ultra-sensitive with reference range <=4.5) up from 48 on 08/23/20. will resume scheduled outpatient appointments and treatment (5) Hydronephrosis: Status: Acute Asessment and Plan: bilateral nephrostomy tube in place and functioning well no evidence of obstruction by CT followed by dr barnes, changed at [facility] end of july Discharge Plan Disposition Patient Disposition: HOME Condition: Stable Discharge Details Reason For Visit: ANEMIA, HEMATURIA, UTI, PROSTATE CA W/ LIVER METS Admit Date/Time: 09/06/20 13:04 Admit Provider: Mo Hand Attending Provider: Mo Hand Primary Care Provider: Wilfrido Parisi Hospital Course Hospital Course: This is a 64 year old male with history of metastatic prostate cancer followed at [facility] who was scheduled in infusion clinic for IV iron infusion and 2 units of PRBC for anemia secondary to hematuria who was found to have a fever that he was unaware of. he was referred to the ED for work up and urine reflexed for culture. he was started on imipenem and admitted overnight for monitoring and blood infusion. He remained hemodynamically stable. max temp overnight was 39.4. In the am he is nauseated as he has no had access to his medical marijuana and feels he is able to be discharged to home. His H/H is up to 7.3/23.6 from 5.8/19.3. he has appointment on FridaySeptember 11 and further outpatient work up and orders will be directed by that team. Dr Barnes to follow urine culture. discharged home with no services. discussed with Dr Hand. Home Meds and New Rx's Prescriptions: Continued mesalamine 1.2 gram tablet,delayed release (DR/EC) 2.4 g PO DAILY RF: 0 ascorbate calcium (vitamin C) 500 mg tablet 500 mg PO DAILY RF: 0 vitamin B complex [B Complex-Vitamin B12] Tablet 1 tab PO DAILY RF: 0 diphenhydramine-acetaminophen [Tylenol PM Extra Strength] 25-500 mg tablet 1 tab PO QHS PRNRF: 0 finasteride 5 mg tablet 5 mg PO DAILY Qty: 90 RF: 3 tamsulosin 0.4 mg capsule 0.4 mg PO DAILY Qty: 90 RF: 3 calcium carbonate-vitamin D3 500 mg(1,250mg) -125 unit Tablet 1 tab PO DAILY RF: 0 tramadol 50 mg tablet 50 mg PO Q8H PRN (Reason: pain) Qty: 20 RF: 0 prednisone 5 mg tablet 5 mg PO QDAY RF: 0 abiraterone 500 mg tablet 500 mg PO QDAY RF: 0 Discharge Instructions Instructions: Catheter-associated Urinary Tract Infection (DC) Additional Instructions: keep scheduled appointments push fluids to stay well hydrated. continue medication as directed Stand Alone Forms: Nursing Discharge Form Referrals: Logan Barnes MD [ [facility] STAFF PHYSICIAN] - (call office tomorrow. ) Activity:: Activity as Tolerated Equipment/Supplies:: No Equipment Needed Diet:: As Tolerated Discharge Orders Discharge Orders: Discharge Order (Routine); Ordered 09/07/20 Ordered By: Bridget Lerma DS: Summary Time Spent with Patient providing and/or coordinating discharge services: Greater than 30 minutes Status at Discharge Functional status at discharge: independent ambulation Overall status at discharge: patient is back to baseline Mental Status: mental status grossly normal Speech and Movement: speech and movement normal Mood: congruent mood Affect: normal affect Exam Narrative Exam Narrative: pale warm dry and in no acute distress head atraumatic normocephalic neck: no JVD resp: even and unlabored CV: regular rate and rhythm abd: round, benign ext: TRUJILLO no edema Psych Mental Status: mental status grossly normal Speech and Movement: speech and movement normal Mood: congruent mood Affect: normal affect DS: Data Vitals/I&O Vitals and I&O: Vital Signs Temperature 36.7 C 09/07/20 05:39 Temperature Source Tympanic 09/07/20 05:39 Pulse 81 09/07/20 05:39 Pulse Rhythm Regular 09/07/20 03:36 Pulse 83 09/06/20 13:31 Respiratory Rate 18 09/07/20 05:39 Respiratory Effort Non-Labored 09/07/20 03:36 Respiratory Depth Normal 09/07/20 03:36 Respiratory Pattern Normal 09/07/20 03:36 Blood Pressure 159/75 H 09/07/20 05:39 Blood Pressure Mean 77 09/06/20 13:31 Blood Pressure Position Supine 09/06/20 10:06 Pulse Oximetry 98 09/07/20 05:39 Oxygen Delivery Method Room Air 09/07/20 05:39 Oxygen Flow Rate 0 09/07/20 05:39 Pain Level 0 09/07/20 05:39 Comment 09/06/20 16:48 Intake & Output 09/06/20 09/06/20 09/07/20 11:59 23:59 11:59 Intake Total 3360 / 3360 100 / 100 Output Total 1280 / 1280 460 / 460 Balance 2080 / 2080 -360 / -360 Weight 86.183 kg Intake: IV 1585 / 1585 100 / 100 Oral 100 / 100 Blood Product 750 / 750 Rbc Leuko Reduced Unit 250 / 250 [id number] Rbc Leuko Reduced Unit 500 / 500 [id number] Injectate 925 / 925 Left Nephrostomy 425 / 425 Right Nephrostomy 500 / 500 Output: Drainage 1250 / 1250 450 / 450 Left Nephrostomy 600 / 600 220 / 220 Right Nephrostomy 650 / 650 230 / 230 Urine 10 / 10 Other: Urine Color Vasques Vasques Urine Appearance Hematuria Hematuria Urine Odor Normal Normal Voiding Methods Urinal Urinal Data Completed and Pending Labs on day of discharge: Labs from last 24 hours 09/07/20 09/06/20 09/06/20 06:22 22:37 22:37 WBC 12.51 H RBC 3.08 L Hgb 7.3 L Hct 23.6 L D MCV 76.6 L MCH 23.7 L MCHC 30.9 L RDW 19.9 H Plt Count 466 H MPV 9.2 Immature Gran % Neutrophils % Lymphocytes % Monocytes % Eosinophils % Basophils % Nucleated RBC % Absolute Neutrophils Absolute Lymphocytes Absolute Monocytes Absolute Eosinophils Absolute Basophils RBC Morphology Polychromasia Hypochromasia Poikilocytosis Anisocytosis Microcytosis VBG Lactate Sodium Potassium Chloride Carbon Dioxide Anion Gap BUN Creatinine Estimated GFR/1.73 m2 Glucose Calcium Total Bilirubin AST ALT Alkaline Phosphatase Total Protein Albumin Urine Color Urine Clarity Urine pH Ur Specific [place] Urine Protein Urine Ketones Urine Blood Urine Nitrite Urine Bilirubin Urine Urobilinogen Ur Leukocyte Esterase Urine RBC Urine WBC Ur Epithelial Cells Urine Crystals Urine Bacteria Urine Casts Urine Mucus Urine Other Ur Culture Indicated? Urine Glucose COVID-19 Source SARS-CoV-2 (PCR) Patient ABO/Rh Antibody Screen Crossmatch Reaction Clerical Check Cancelled Cancelled Clerical Work Check Cancelled Cancelled Pre-Trans Blood Type Cancelled Cancelled Pre-Trans Bld Appearanc Cancelled Cancelled Pre-Trans JAYDA Cancelled Cancelled Post-Trans Blood Type Cancelled Cancelled Post-Trans Spec Appear Cancelled Cancelled Post-Trans JAYDA Cancelled Cancelled Reaction Pathol Review Cancelled Cancelled 09/06/20 09/06/20 09/06/20 13:10 12:29 11:57 WBC RBC Hgb Hct MCV MCH MCHC RDW Plt Count MPV Immature Gran % Neutrophils % Lymphocytes % Monocytes % Eosinophils % Basophils % Nucleated RBC % Absolute Neutrophils Absolute Lymphocytes Absolute Monocytes Absolute Eosinophils Absolute Basophils RBC Morphology Polychromasia Hypochromasia Poikilocytosis Anisocytosis Microcytosis VBG Lactate Sodium Potassium Chloride Carbon Dioxide Anion Gap BUN Creatinine Estimated GFR/1.73 m2 Glucose Calcium Total Bilirubin AST ALT Alkaline Phosphatase Total Protein Albumin Urine Color Red Urine Clarity Turbid Urine pH 8.5 H Ur Specific [place] 1.020 Urine Protein >=300 H Urine Ketones Negative Urine Blood Large H Urine Nitrite Positive H Urine Bilirubin Moderate H Urine Urobilinogen 0.2 Ur Leukocyte Esterase Small H Urine RBC >50 H Urine WBC >50 H Ur Epithelial Cells Not Applicable Urine Crystals Not Applicable Urine Bacteria Not Applicable Urine Casts Urine Mucus Not Applicable Urine Other Ur Culture Indicated? Yes Urine Glucose Negative COVID-19 Source Nasopharyx SARS-CoV-2 (PCR) Negative Patient ABO/Rh Cancelled Antibody Screen Crossmatch See Detail Reaction Clerical Check Clerical Work Check Pre-Trans Blood Type Pre-Trans Bld Appearanc Pre-Trans JAYDA Post-Trans Blood Type Post-Trans Spec Appear Post-Trans JAYDA Reaction Pathol Review 09/06/20 09/06/20 09/06/20 11:35 10:20 10:20 WBC 12.88 H RBC 2.58 L Hgb 5.8 L* Hct 19.3 L* MCV 74.8 L MCH 22.5 L MCHC 30.1 L RDW 20.2 H Plt Count 499 H MPV 8.8 Immature Gran % 0.5 Neutrophils % 83.0 Lymphocytes % 9.4 Monocytes % 6.1 Eosinophils % 0.8 Basophils % 0.2 Nucleated RBC % 0 Absolute Neutrophils 10.69 H Absolute Lymphocytes 1.21 Absolute Monocytes 0.79 Absolute Eosinophils 0.10 Absolute Basophils 0.03 RBC Morphology See below Polychromasia Present Hypochromasia 3+ Poikilocytosis 2+ Anisocytosis 2+ Microcytosis 3+ VBG Lactate 1.2 Sodium Potassium Chloride Carbon Dioxide Anion Gap BUN Creatinine Estimated GFR/1.73 m2 Glucose Calcium Total Bilirubin AST ALT Alkaline Phosphatase Total Protein Albumin Urine Color Yellow Urine Clarity Cloudy Urine pH 7.0 Ur Specific [place] 1.020 Urine Protein 100 H Urine Ketones Negative Urine Blood Trace-intact H Urine Nitrite Positive H Urine Bilirubin Negative Urine Urobilinogen 0.2 Ur Leukocyte Esterase Moderate H Urine RBC 3-5 H Urine WBC >50 H Ur Epithelial Cells Few Urine Crystals Negative Urine Bacteria Many Urine Casts Negative Urine Mucus Moderate Urine Other Negative Ur Culture Indicated? Yes Urine Glucose Negative COVID-19 Source SARS-CoV-2 (PCR) Patient ABO/Rh Antibody Screen Crossmatch Reaction Clerical Check Clerical Work Check Pre-Trans Blood Type Pre-Trans Bld Appearanc Pre-Trans JAYDA Post-Trans Blood Type Post-Trans Spec Appear Post-Trans JAYDA Reaction Pathol Review 09/06/20 09/06/20 10:20 08:10 WBC RBC Hgb Hct MCV MCH MCHC RDW Plt Count MPV Immature Gran % Neutrophils % Lymphocytes % Monocytes % Eosinophils % Basophils % Nucleated RBC % Absolute Neutrophils Absolute Lymphocytes Absolute Monocytes Absolute Eosinophils Absolute Basophils RBC Morphology Polychromasia Hypochromasia Poikilocytosis Anisocytosis Microcytosis VBG Lactate Sodium 132 L Potassium 3.5 Chloride 99 Carbon Dioxide 26.7 Anion Gap 6.3 BUN 10 Creatinine 0.9 Estimated GFR/1.73 m2 >= 60.00 Glucose 103 Calcium 8.2 L Total Bilirubin 0.4 AST 21 ALT 16 Alkaline Phosphatase 122 H Total Protein 7.3 Albumin 2.4 L Urine Color Urine Clarity Urine pH Ur Specific [place] Urine Protein Urine Ketones Urine Blood Urine Nitrite Urine Bilirubin Urine Urobilinogen Ur Leukocyte Esterase Urine RBC Urine WBC Ur Epithelial Cells Urine Crystals Urine Bacteria Urine Casts Urine Mucus Urine Other Ur Culture Indicated? Urine Glucose COVID-19 Source SARS-CoV-2 (PCR) Patient ABO/Rh O Positive Antibody Screen Negative Crossmatch See Detail Reaction Clerical Check Clerical Work Check Pre-Trans Blood Type Pre-Trans Bld Appearanc Pre-Trans JAYDA Post-Trans Blood Type Post-Trans Spec Appear Post-Trans JAYDA Reaction Pathol Review 09/06/20 11:57 Urine - Reflex from Ua Urine Culture - Pending 09/06/20 11:35 Urine - Reflex from Ua Urine Culture - Pending 09/06/20 10:30 Blood Blood Culture - Pending 09/06/20 10:45 Blood Blood Culture - Pending Preliminary micro results at discharge 09/06/20 11:57 Urine Culture - Pending Urine - Reflex from Ua 09/06/20 11:35 Urine Culture - Pending Urine - Reflex from Ua 09/06/20 10:30 Blood Culture - Pending Blood 09/06/20 10:45 Blood Culture - Pending Blood [facility] Medical History (Updated 09/06/20 @ 15:43 by Bridget Lerma NP) Atopic dermatitis BPH (benign prostatic hyperplasia) with retension Hydrocele Hydronephrosis Nocturia Prostate cancer Ulcerative (chronic) proctitis Surgical History (Updated 04/17/20 @ 09:51 by Tracie Isidro RN) History of removal of cyst bengn cyst spine w/numbness to LUE History of transurethral resection of prostate Family History (Updated 04/14/20 @ 08:48 by Sue Vidal RN) Other Cancer Social History Smoking/Tobacco Use Status: Former Tobacco Use Quit Date: 08/07/89 Smoking risk assessment performed?: Yes Alcohol Intake: current Alcohol Intake frequency: 0-2 drinks per day Drug use: Daily Substance use type: marijuana Details: medical marinjuana for nausea Do you feel safe at home: Yes Do you feel safe in your relationship?: Yes
[2020-09-07] MEDS: ERTAPENEM 1 GM in Normal Saline 50 ML IVPB (09:16)
[2020-09-07 09:36] VITALS: BP 161/78; PULSE 86; RESP 16; TEMP 37.2; O2SAT 98
== END 2020-09-07 10:58 | disposition home or self-care (01) | DRG 699 ==
LOC: ER 14:39 → MS 14:58
PROVIDERS: Family Medicine; Admitting Provider Internal Medicine; Emergency Provider Physician Assistant; PCP Family Medicine; Visit Provider Internal Medicine
DX: T83.512A Infection and inflammatory reaction due to nephrostomy catheter, initial encounter (principal); N39.0 Urinary tract infection, site not specified; C78.7 Secondary malignant neoplasm of liver and intrahepatic bile duct; D62 Acute posthemorrhagic anemia; K51.20 Ulcerative (chronic) proctitis without complications; N13.39 Other hydronephrosis; N99.521 Infection of incontinent external stoma of urinary tract; R31.0 Gross hematuria; L20.9 Atopic dermatitis, unspecified; R35.1 Nocturia; C61 Malignant neoplasm of prostate; Z93.6 Other artificial openings of urinary tract status; R11.0 Nausea
CPT/HCPCS: 36410; 36415; 36430; 71275; 74177; 80053; 85027; 86850; 86900; 86901; 86920; 87040; 87635; 96361; 96365; 96366; 96375; 99223; 99239; 99252; 99285; 81003; 81015; 83605; 85025; 86880; 87086; J0131; J1200; J1335; J1941; J2405; J3490; J7512; P9016

== ENCOUNTER 2020-09-13 17:50 | Outpatient (CLI) | payer BC, SELFPAY | END 2020-09-13 18:10 | PROVIDERS: PCP Family Medicine; Visit Provider Internal Medicine Hematology & Oncology | DX: R69 Illness, unspecified (principal) ==

== ENCOUNTER 2020-09-25 03:33 | Outpatient (CLI) | payer BC, SELFPAY ==
[2020-09-25 10:35] LABS: Abs Immature Grans 0.05 10^3/uL (0.0-0.06); Absolute Basophil Count 0.07 10^3/uL (0.0-0.2); Absolute Eosinophil Count 0.09 10^3/uL (0.0-0.7); Absolute Lymphocyte Count 1.17 10^3/uL (1.2-3.4); Absolute Monocyte Count 0.61 10^3/uL (0.1-0.8); Absolute Neutrophil Count 9.18 10^3/uL (1.2-6.7); Basophils % 0.6; Eosinophils % 0.8; HCT 32.2 % (40.0-50.0); HGB 9.8 g/dL (13.5-17.5); Immature Grans % 0.4; Lymphocytes % 10.5; MCH 26.1 pg (27.0-33.0); MCHC 30.4 % (32.0-36.0); MCV 85.6 fL (80-95); MPV 8.7 fL (8.0-11.0); Monocytes % 5.5; Neutrophils % 82.2; Nucleated RBC 0 %; Platelet Count 427 10^3/uL (130-400); RBC 3.76 10^6/uL (4.36-5.78); RDW 27.4 % (11.8-14.1); RDW-SD 85.1 fL; WBC 11.17 10^3/uL (4.4-10.8)
[2020-09-25 10:50] LABS: Magnesium 2.4 mg/dL (1.8-2.4)
[2020-09-25 10:54] LABS: ALT 26 U/L (16-63); AST 47 U/L (15-37); Albumin 3.4 g/dL (3.4-5.0); Alkaline Phosphatase 166 U/L (46-116); Anion Gap 11.5 mmol/L (3-11); BUN 20 mg/dL (7-18); Bilirubin, Total 0.4 mg/dL (0.2-1.0); CO2 26.5 mmol/L (21.0-32.0); CREATININE 1.1 mg/dL (0.70-1.30); Calcium 9.6 mg/dL (8.5-10.1); Chloride 101 mmol/L (98-107); Glucose 140 mg/dL (74-106); Potassium 4.3 mmol/L (3.5-5.1); Sodium 139 mmol/L (136-145); Total Protein 8.7 g/dL (6.4-8.2)
[2020-09-25 11:09] LABS: Anisocytosis 3+; Diff Comment Diff Reviewed; Hypochromasia 2+; Microcytosis 2+
[2020-09-25 11:10] LABS: Poikilocytes 1+
[2020-09-25 11:21] LABS: Iron 28 ug/dL (65-175)
[2020-09-25 11:22] LABS: Ferritin 668 ng/mL (26-388)
[2020-09-26 13:24] LABS: PSA, Ultrasensitive 104 ng/mL (<= 4.5)
== END 2020-09-25 03:34 | disposition home or self-care (01) ==
LOC: LBO 03:33
PROVIDERS: Internal Medicine Hematology & Oncology; PCP Family Medicine; Visit Provider Internal Medicine Medical Oncology
DX: C61 Malignant neoplasm of prostate (principal); C78.7 Secondary malignant neoplasm of liver and intrahepatic bile duct; D50.0 Iron deficiency anemia secondary to blood loss (chronic)
CPT/HCPCS: 36415; 80053; 84153; 86900; 86901; 82728; 83540; 83735; 85025

== ENCOUNTER 2020-10-03 09:00 | Outpatient (RCR) | payer BC, SELFPAY ==
[2020-09-07 00:18] VITALS: BP 124/63; PULSE 103; RESP 22; TEMP 39.4
[2020-09-13 09:18] LABS: Abs Immature Grans 0.09 10^3/uL (0.0-0.06); Absolute Basophil Count 0.02 10^3/uL (0.0-0.2); Absolute Eosinophil Count 0.13 10^3/uL (0.0-0.7); Absolute Lymphocyte Count 1.12 10^3/uL (1.2-3.4); Absolute Monocyte Count 0.76 10^3/uL (0.1-0.8); Absolute Neutrophil Count 9.55 10^3/uL (1.2-6.7); Basophils % 0.2; Eosinophils % 1.1; HCT 25.8 % (40.0-50.0); HGB 7.8 g/dL (13.5-17.5); Immature Grans % 0.8; Lymphocytes % 9.6; MCH 23.8 pg (27.0-33.0); MCHC 30.2 % (32.0-36.0); MCV 78.7 fL (80-95); MPV 8.9 fL (8.0-11.0); Monocytes % 6.5; Neutrophils % 81.8; Nucleated RBC 0 %; Platelet Count 454 10^3/uL (130-400); RBC 3.28 10^6/uL (4.36-5.78); RDW 23.4 % (11.8-14.1); RDW-SD 63.7 fL; WBC 11.67 10^3/uL (4.4-10.8)
[2020-09-13] MEDS: FERRIC CARBOXYMALTOSE 750 MG in Normal Saline 250 ML 1060 MG IVPB (09:20)
[2020-09-13] MEDS: Normal Saline Flush 10 ML SYR IVP (09:20)
[2020-09-13 09:33] LABS: Anisocytosis 2+; Diff Comment Diff Reviewed; Hypochromasia 2+; Microcytosis 2+; Polychromasia Present
[2020-09-13 09:34] LABS: Poikilocytes 2+
[2020-09-13 10:08] VITALS: BP 139/71; PULSE 86; RESP 16; TEMP 37.1; O2SAT 96
[2020-09-13 11:25] VITALS: BP 151/76; PULSE 80; RESP 18; TEMP 36.9; O2SAT 96
[2020-09-13 11:40] VITALS: BP 152/78; PULSE 82; RESP 18; TEMP 36.9; O2SAT 96
[2020-09-13 12:10] VITALS: BP 156/81; PULSE 84; RESP 16; TEMP 36.8; O2SAT 97
[2020-09-13 12:48] VITALS: BP 154/83; PULSE 87; RESP 18; TEMP 36.6; O2SAT 96
[2020-09-20] MEDS: Normal Saline Flush 10 ML SYR IVP (11:23)
[2020-09-20 11:26] LABS: Abs Immature Grans 0.06 10^3/uL (0.0-0.06); Absolute Basophil Count 0.05 10^3/uL (0.0-0.2); Absolute Eosinophil Count 0.13 10^3/uL (0.0-0.7); Absolute Lymphocyte Count 1.21 10^3/uL (1.2-3.4); Absolute Monocyte Count 0.52 10^3/uL (0.1-0.8); Basophils % 0.5; Eosinophils % 1.3; HCT 32.4 % (40.0-50.0); HGB 9.9 g/dL (13.5-17.5); Immature Grans % 0.6; Lymphocytes % 11.7; MCH 25.4 pg (27.0-33.0); MCHC 30.6 % (32.0-36.0); MCV 83.3 fL (80-95); MPV 8.9 fL (8.0-11.0); Neutrophils % 80.9; Nucleated RBC 0 %; RBC 3.89 10^6/uL (4.36-5.78); RDW-SD 77.8 fL; WBC 10.37 10^3/uL (4.4-10.8)
[2020-09-20 11:47] LABS: Platelet Count 502 10^3/uL (130-400)
[2020-09-20 11:48] LABS: Anisocytosis 3+; Diff Comment Diff Reviewed; Hypochromasia 2+; Poikilocytes 1+; Polychromasia Present
[2020-10-03] MEDS: Normal Saline Flush 10 ML SYR IVP (09:26)
[2020-10-03 09:36] LABS: Abs Immature Grans 0.07 10^3/uL (0.0-0.06); Absolute Basophil Count 0.06 10^3/uL (0.0-0.2); Absolute Eosinophil Count 0.12 10^3/uL (0.0-0.7); Absolute Lymphocyte Count 0.85 10^3/uL (1.2-3.4); Absolute Monocyte Count 0.39 10^3/uL (0.1-0.8); Absolute Neutrophil Count 5.16 10^3/uL (1.2-6.7); Basophils % 0.9; Eosinophils % 1.8; HCT 25.3 % (40.0-50.0); HGB 7.8 g/dL (13.5-17.5); Immature Grans % 1.1; Lymphocytes % 12.8; MCH 26.4 pg (27.0-33.0); MCHC 30.8 % (32.0-36.0); MCV 85.5 fL (80-95); MPV 9.4 fL (8.0-11.0); Monocytes % 5.9; Neutrophils % 77.5; Nucleated RBC 0 %; RBC 2.96 10^6/uL (4.36-5.78); RDW 26.3 % (11.8-14.1); RDW-SD 78.9 fL; WBC 6.65 10^3/uL (4.4-10.8)
[2020-10-03 09:50] LABS: Anisocytosis 3+; Diff Comment Diff Reviewed; Hypochromasia 2+; Platelet Count 349 10^3/uL (130-400); Poikilocytes 1+
[2020-10-03 10:05] VITALS: BP 120/72; PULSE 101; RESP 16; TEMP 36.6; O2SAT 99
[2020-10-03 10:51] VITALS: BP 117/74; PULSE 101; RESP 20; TEMP 36; O2SAT 98
[2020-10-03 11:06] VITALS: BP 124/70; PULSE 85; RESP 16; TEMP 36.4; O2SAT 99
[2020-10-03 11:36] VITALS: BP 126/75; PULSE 89; RESP 16; TEMP 36.5; O2SAT 97
[2020-10-03 12:40] VITALS: BP 138/79; PULSE 88; RESP 20; TEMP 36.1; O2SAT 99
== END 2020-10-06 23:59 | disposition home or self-care (01) ==
LOC: INF 09:00
PROVIDERS: PCP Family Medicine; Visit Provider Internal Medicine Medical Oncology
DX: D50.0 Iron deficiency anemia secondary to blood loss (chronic) (principal); C61 Malignant neoplasm of prostate
CPT/HCPCS: 36415; 36430; 86850; 86900; 86901; 86920; 96365; 85025; P9016

== ENCOUNTER 2020-10-30 01:36 | Outpatient (RCR) | payer BC, SELFPAY ==
[2020-10-07 00:11] VITALS: BP 138/79; PULSE 88; RESP 20; TEMP 36.1
[2020-10-11 09:36] LABS: Abs Immature Grans 0.03 10^3/uL (0.0-0.06); Absolute Basophil Count 0.06 10^3/uL (0.0-0.2); Absolute Eosinophil Count 0.07 10^3/uL (0.0-0.7); Absolute Lymphocyte Count 1.06 10^3/uL (1.2-3.4); Absolute Monocyte Count 0.54 10^3/uL (0.1-0.8); Absolute Neutrophil Count 4.95 10^3/uL (1.2-6.7); Basophils % 0.9; HCT 34.2 % (40.0-50.0); HGB 10.3 g/dL (13.5-17.5); Immature Grans % 0.4; Lymphocytes % 15.8; MCH 26.8 pg (27.0-33.0); MCHC 30.1 % (32.0-36.0); MCV 89.1 fL (80-95); MPV 8.9 fL (8.0-11.0); Neutrophils % 73.9; Nucleated RBC 0 %; Platelet Count 562 10^3/uL (130-400); RBC 3.84 10^6/uL (4.36-5.78); RDW 24.2 % (11.8-14.1); RDW-SD 77.6 fL; WBC 6.71 10^3/uL (4.4-10.8)
[2020-10-12 13:56] LABS: PSA, Ultrasensitive 20.5 ng/mL (<= 4.5)
[2020-10-16] MEDS: Normal Saline Flush 10 ML SYR IVP (09:30)
[2020-10-16 10:56] LABS: Abs Immature Grans 0.04 10^3/uL (0.0-0.06); Absolute Basophil Count 0.07 10^3/uL (0.0-0.2); Absolute Eosinophil Count 0.05 10^3/uL (0.0-0.7); Absolute Lymphocyte Count 1.21 10^3/uL (1.2-3.4); Absolute Monocyte Count 0.68 10^3/uL (0.1-0.8); Absolute Neutrophil Count 6.97 10^3/uL (1.2-6.7); Basophils % 0.8; Eosinophils % 0.6; HCT 32.8 % (40.0-50.0); HGB 10.2 g/dL (13.5-17.5); Immature Grans % 0.4; Lymphocytes % 13.4; MCH 27.1 pg (27.0-33.0); MCHC 31.1 % (32.0-36.0); MPV 8.8 fL (8.0-11.0); Monocytes % 7.5; Neutrophils % 77.3; Nucleated RBC 0 %; Platelet Count 472 10^3/uL (130-400); RBC 3.77 10^6/uL (4.36-5.78); RDW 23.4 % (11.8-14.1); RDW-SD 73.2 fL; WBC 9.02 10^3/uL (4.4-10.8)
[2020-10-16 11:10] LABS: ALT 18 U/L (16-63); AST 14 U/L (15-37); Albumin 3.2 g/dL (3.4-5.0); Alkaline Phosphatase 136 U/L (46-116); Anion Gap 8.1 mmol/L (3-11); Anisocytosis 1+; BUN 19 mg/dL (7-18); Bilirubin, Total 0.2 mg/dL (0.2-1.0); CO2 28.9 mmol/L (21.0-32.0); CREATININE 0.8 mg/dL (0.70-1.30); Calcium 9.1 mg/dL (8.5-10.1); Chloride 102 mmol/L (98-107); Diff Comment Diff Reviewed; Glucose 117 mg/dL (74-106); Potassium 4.2 mmol/L (3.5-5.1); Sodium 139 mmol/L (136-145); Total Protein 8.3 g/dL (6.4-8.2)
[2020-10-23 09:33] LABS: Abs Immature Grans 0.07 10^3/uL (0.0-0.06); Absolute Basophil Count 0.03 10^3/uL (0.0-0.2); Absolute Eosinophil Count 0.05 10^3/uL (0.0-0.7); Absolute Lymphocyte Count 0.93 10^3/uL (1.2-3.4); Absolute Monocyte Count 0.67 10^3/uL (0.1-0.8); Absolute Neutrophil Count 7.27 10^3/uL (1.2-6.7); Basophils % 0.3; Eosinophils % 0.6; HCT 29.4 % (40.0-50.0); HGB 9.1 g/dL (13.5-17.5); Immature Grans % 0.8; Lymphocytes % 10.3; MCH 27.4 pg (27.0-33.0); MCV 88.6 fL (80-95); MPV 9.2 fL (8.0-11.0); Monocytes % 7.4; Neutrophils % 80.6; Nucleated RBC 0 %; Platelet Count 387 10^3/uL (130-400); RBC 3.32 10^6/uL (4.36-5.78); RDW 21.7 % (11.8-14.1); RDW-SD 70.4 fL; WBC 9.02 10^3/uL (4.4-10.8)
[2020-10-23 09:46] LABS: Anisocytosis 2+; Diff Comment Diff Reviewed; Hypochromasia 1+; Polychromasia Present
[2020-10-23 09:47] LABS: ALT 21 U/L (16-63); AST 13 U/L (15-37); Albumin 2.8 g/dL (3.4-5.0); Alkaline Phosphatase 114 U/L (46-116); Anion Gap 9.9 mmol/L (3-11); BUN 21 mg/dL (7-18); Bilirubin, Total 0.3 mg/dL (0.2-1.0); CO2 30.1 mmol/L (21.0-32.0); CREATININE 0.9 mg/dL (0.70-1.30); Calcium 9.2 mg/dL (8.5-10.1); Chloride 97 mmol/L (98-107); Glucose 119 mg/dL (74-106); Potassium 4.1 mmol/L (3.5-5.1); Sodium 137 mmol/L (136-145); Total Protein 8.4 g/dL (6.4-8.2)
[2020-10-30 14:37] LABS: Abs Immature Grans 0.09 10^3/uL (0.0-0.06); Absolute Basophil Count 0.04 10^3/uL (0.0-0.2); Absolute Eosinophil Count 0.08 10^3/uL (0.0-0.7); Absolute Lymphocyte Count 1.33 10^3/uL (1.2-3.4); Absolute Monocyte Count 0.76 10^3/uL (0.1-0.8); Absolute Neutrophil Count 5.61 10^3/uL (1.2-6.7); Basophils % 0.5; HCT 29.6 % (40.0-50.0); HGB 9.1 g/dL (13.5-17.5); Immature Grans % 1.1; Lymphocytes % 16.8; MCH 27.2 pg (27.0-33.0); MCHC 30.7 % (32.0-36.0); MCV 88.4 fL (80-95); MPV 8.7 fL (8.0-11.0); Monocytes % 9.6; Nucleated RBC 0 %; Platelet Count 485 10^3/uL (130-400); RBC 3.35 10^6/uL (4.36-5.78); RDW 21.1 % (11.8-14.1); RDW-SD 69.1 fL; WBC 7.91 10^3/uL (4.4-10.8)
[2020-10-30 14:45] LABS: Diff Comment RBC Morph Reviewed
[2020-10-30 14:48] LABS: Anisocytosis 2+
== END 2020-11-06 23:59 | disposition home or self-care (01) ==
LOC: INF 01:36
PROVIDERS: PCP Family Medicine; Visit Provider Internal Medicine Medical Oncology
DX: D50.0 Iron deficiency anemia secondary to blood loss (chronic) (principal); C61 Malignant neoplasm of prostate
CPT/HCPCS: 36415; 80053; 84153; 86900; 86901; 85025

== ENCOUNTER 2020-12-04 02:46 | Outpatient (RCR) | payer BC, SELFPAY ==
[2020-11-07 00:17] VITALS: BP 138/79; PULSE 88; RESP 20; TEMP 36.1
[2020-11-13] MEDS: Normal Saline Flush 10 ML SYR IVP (12:08)
[2020-11-13 12:10] LABS: Abs Immature Grans 0.04 10^3/uL (0.0-0.06); Absolute Basophil Count 0.04 10^3/uL (0.0-0.2); Absolute Eosinophil Count 0.06 10^3/uL (0.0-0.7); Absolute Lymphocyte Count 1.46 10^3/uL (1.2-3.4); Absolute Monocyte Count 0.69 10^3/uL (0.1-0.8); Absolute Neutrophil Count 7.43 10^3/uL (1.2-6.7); Basophils % 0.4; Eosinophils % 0.6; HCT 31.5 % (40.0-50.0); HGB 9.9 g/dL (13.5-17.5); Immature Grans % 0.4; MCH 27.6 pg (27.0-33.0); MCHC 31.4 % (32.0-36.0); MCV 87.7 fL (80-95); Monocytes % 7.1; Neutrophils % 76.5; Nucleated RBC 0 %; Platelet Count 386 10^3/uL (130-400); RBC 3.59 10^6/uL (4.36-5.78); RDW 18.4 % (11.8-14.1); RDW-SD 58.9 fL; WBC 9.72 10^3/uL (4.4-10.8)
[2020-11-13 12:23] LABS: ALT 17 U/L (16-63); AST 24 U/L (15-37); Albumin 3.4 g/dL (3.4-5.0); Alkaline Phosphatase 115 U/L (46-116); Anion Gap 12.3 mmol/L (3-11); BUN 21 mg/dL (7-18); Bilirubin, Total 0.3 mg/dL (0.2-1.0); CO2 25.7 mmol/L (21.0-32.0); CREATININE 1.1 mg/dL (0.70-1.30); Chloride 100 mmol/L (98-107); Glucose 132 mg/dL (74-106); Potassium 3.6 mmol/L (3.5-5.1); Sodium 138 mmol/L (136-145); Total Protein 8.7 g/dL (6.4-8.2)
[2020-12-04 07:36] LABS: Abs Immature Grans 0.03 10^3/uL (0.0-0.06); Absolute Basophil Count 0.04 10^3/uL (0.0-0.2); Absolute Eosinophil Count 0.06 10^3/uL (0.0-0.7); Absolute Lymphocyte Count 1.38 10^3/uL (1.2-3.4); Absolute Monocyte Count 0.52 10^3/uL (0.1-0.8); Absolute Neutrophil Count 5.72 10^3/uL (1.2-6.7); Basophils % 0.5; Eosinophils % 0.8; HCT 34.3 % (40.0-50.0); HGB 10.7 g/dL (13.5-17.5); Immature Grans % 0.4; Lymphocytes % 17.8; MCH 28.7 pg (27.0-33.0); MCHC 31.2 % (32.0-36.0); MPV 9.1 fL (8.0-11.0); Monocytes % 6.7; Neutrophils % 73.8; Nucleated RBC 0 %; Platelet Count 386 10^3/uL (130-400); RBC 3.73 10^6/uL (4.36-5.78); RDW 17.2 % (11.8-14.1); RDW-SD 57.7 fL; WBC 7.75 10^3/uL (4.4-10.8)
[2020-12-04] MEDS: Normal Saline Flush 10 ML SYR IVP (07:36)
[2020-12-04 07:51] LABS: ALT 17 U/L (16-63); AST 31 U/L (15-37); Albumin 3.4 g/dL (3.4-5.0); Alkaline Phosphatase 111 U/L (46-116); BUN 19 mg/dL (7-18); Bilirubin, Total 0.3 mg/dL (0.2-1.0); CREATININE 1.1 mg/dL (0.70-1.30); Calcium 9.6 mg/dL (8.5-10.1); Chloride 101 mmol/L (98-107); Glucose 186 mg/dL (74-106); Potassium 3.8 mmol/L (3.5-5.1); Sodium 137 mmol/L (136-145); Total Protein 8.5 g/dL (6.4-8.2)
== END 2020-12-06 23:59 | disposition home or self-care (01) ==
LOC: INF 02:46
PROVIDERS: PCP Family Medicine; Visit Provider Internal Medicine Medical Oncology
DX: D50.0 Iron deficiency anemia secondary to blood loss (chronic) (principal); C61 Malignant neoplasm of prostate; C78.7 Secondary malignant neoplasm of liver and intrahepatic bile duct
CPT/HCPCS: 36415; 80053; 84153; 86900; 86901; 85025

== ENCOUNTER 2020-12-06 01:19 | Outpatient (CLI) | payer BC, SELFPAY ==
--- NOTE | 2020-12-06 08:30 | DI.NM_ITS ---
Exam(s) NM BONE SCAN WHOLE BODY GRP EXAM: NM BONE SCAN WHOLE BODY GRP CLINICAL HISTORY: MALIGNANT NEOPLASM PROSTATE, C61, ANEMIA DUE TO BLOOD LOSS. TECHNIQUE: Injected Dose: 25 mCi Tc-99m MDP Delayed Images: 2-3 hours. COMPARISON: CT CT CHEST/ABD/PEL W from 12/06/2020 FINDINGS: There is signify multifocal uptake throughout the skeleton consistent advanced osseous metastatic disease, as also evident on today's CT scan which revealed significant increase in blastic disease throughout the spinal column, rib cages, and pelvis peer the most prominent uptake i n the spinal column is in T12 and L1 vertebral bodies which are shown to be extensively involved also on CT scan as well as the posterior aspect of T11. Also extensive increasing involvement of the pos terior aspect of T6 vertebral body. Also multiple smaller foci of uptake in multiple other vertebral bodies and extensive involvement of the sacrum and region of the sacroiliac joints and the superior a and pubic rami, with much more involvement in left pubic rami than the right all the right is also significant involved, particularly superiorly at the level of the symphysis pubis. A few foci in the skull are noted. Numerous ribs are involved. No rib fractures insert no acute rib fractures identi fied. There is a healed fracture of the left 8th rib noted on the CT scan which does not exhibit abn ormal activity on nuclear bone scan. There is a focus involvement in the mid aspect of the right humerus and at the junction of the mid an d distal thirds of the left femur. Bilateral functioning nephrostomy tubes are noted. IMPRESSION: 1. Extensive osseous metastatic disease, commensurate with findings on today's CT scan which also rev eal significant progression in blastic metastatic skeletal disease when compared to the prior CT scan of the 09/06/2020. Functioning bilateral nephrostomy tubes. CT scan reveals these to be well-positioned and with no anthony dence of hydronephrosis on either side. DATA REPOSITORY:
[2020-12-06] MEDS: Omnipaque 350 MG/ML 50 ML BTL IJ (09:03)
[2020-12-06] MEDS: Breeza Beverage 473 ML BTL PO (09:05)
[2020-12-06] MEDS: Omnipaque 350 MG/ML 100 ML BTL IJ (10:16)
[2020-12-06] MEDS: Normal Saline - Diluent 50 ML VIAL IV (10:16)
--- NOTE | 2020-12-06 10:28 | DI.CT_ITS ---
Exam(s) CT CHEST/ABD/PEL W EXAM: CT CHEST/ABD/PEL W CLINICAL HISTORY: PROSTATE CA, C61, ANEMIA DUE TO BLOOD LOSS, D50.0. TECHNIQUE: Imaging Protocol: Axial computed tomography images with coronal and sagittal reformatted images were created and reviewed CONTRAST MATERIAL: Intravenous: Omnipaque 350 Contrast volume:100 ml Oral: None COMPARISON: CT CT CHEST PE ABD PELVIS W from 09/06/[address] CHEST PE ABD PELVIS W from 09/06/2020 NM NM BONE SCAN WHOLE BODY GRP from 12/06/2020 NM NM BONE SCAN WHOLE BODY GRP from 12/06/2020 FINDINGS: CHEST: LUNGS: There are no metastatic pulmonary nodules. Small area of subpleural infiltrate in the lingular segment of the left lung remains unchanged. There are no pleural effusions. No new findings in the t rachea and mainstem bronchi.. MEDIASTINUM: There is no hilar nor mediastinal adenopathy. Visualized thyroid unremarkable. CARDIAC: Heart size is normal. There is no pericardial effusion.Caliber of the thoracic aorta is wit hin normal limits. OSSEOUS: There is significant increase in blastic metastatic disease in the thoracic spinal column an d rib cages. No lytic expansile lesions evident. All are blastic.. ABDOMEN: There is no ascites. LIVER: There are numerous metastatic lesions throughout both hepatic lobes again noted. Some of these have decreased in size from the 09/06/2020 study. Again noted is a stable 2 x 1.8 cm cyst in the mid aspect of the right hepatic lobe, unchanged GALLBLADDER/BILIARY: No obvious gallbladder pathology. CBD is not dilated. PANCREAS: No evidence of pancreatic mass nor dilatation of the pancreatic duct. SPLEEN: Spleen is not enlarged. There are no intrasplenic lesions. Splenic and portal veins are bernstein nt. ADRENALS: There are no significant adrenal masses. KIDNEYS: Both kidneys are again noted to be decompressed by well placed bilateral nephrostomy tubes.. Pigtails of both nephrostomy tubes are in the renal pelves. There is no evidence of subcapsular alejandra l hematoma nor perinephric fluid collections. ABDOMINAL AORTA: Atherosclerotic. Upper normal diameter. No para-aortic adenopathy. LYMPH NODES: There is no retroperitoneal nor paraaortic adenopathy. No adenopathy around the aortic b ifurcation nor along the iliac chains and there is no inguinal adenopathy. ABDOMINAL WALL: No evidence of significant anterior abdominal wall hernia. GI: There is no evidence of bowel obstruction. PELVIS: LYMPH NODES: There is no intrapelvic nor inguinal adenopathy. GI: No evidence of appendicitis.No evidence of sigmoid diverticulitis. URINARY BLADDER: Grossly filled with neoplasm, similar to previous and very abnormal enlarged prostat e gland with contiguous invasion of the urinary bladder as well as contiguous contact with the communication professor ior wall of the rectum which is probably invaded the appearance at this level in the low pelvis is ve ry similar to the prior study of 09/06/2020 and therefore this is most probably all neoplasm and no a bscess. There is also no evidence of gas within the large partially necrotic tissue mass which involv es the bladder and prostate. REPRODUCTIVE: As above. OSSEOUS: Increasing blastic metastatic disease throughout the bones of the pelvis. IMPRESSION: 1. Compared to the prior CT scan 09/06/2020 there has been significant increase in the amount of maxime tic metastatic disease throughout the skeleton. Please also refer to today's nuclear bone scan. All o f the new bone lesions are blastic. There are no lytic or expansile lesions. No pathologic fractures evident 2. Numerous metastatic lesions throughout the liver are again noted although some of these have decre ased in size. 3. Extensive neoplastic disease in the prostate and urinary bladder again noted, similar to previous. There is probably also involvement of the posterior wall of the rectum, similar to previous. 4. Both kidneys remain well decompressed by well-positioned bilateral nephrostomy tubes. 5. No new findings in the chest to suggest metastatic intrathoracic disease. No new pulmonary nodules nor intrathoracic adenopathy. Small area of subpleural infiltrate in the lingular segment of the lef t lung is unchanged. No pleural effusions. 6. please refer to separate nuclear bone scan report dictated today. RADIATION DOSE DELIVERED: 1,813.98mGy.cm Total DLP DATA REPOSITORY: All CT scans at this facility are submitted to the National Radiology Data Registry (NRDR) Dose Index Registry (DIR) with the [employer] (A[employer]). RADIATION OPTIMIZATION: All CT scans at this facility use at least one of these dose optimization te chniques: automated exposure control; mA and/or kV adjustment per patient size (includes targeted exa ms where dose is matched to clinical indication); or iterative reconstruction.
== END 2020-12-06 01:39 ==
PROVIDERS: PCP Family Medicine; Visit Provider Nurse Practitioner Adult Health
DX: C61 Malignant neoplasm of prostate (principal); D50.0 Iron deficiency anemia secondary to blood loss (chronic); K76.9 Liver disease, unspecified; R91.8 Other nonspecific abnormal finding of lung field
CPT/HCPCS: 74177; 78306; 71260; J3490; Q9967

== ENCOUNTER 2021-01-29 00:25 | Outpatient (CLI) | payer BC, SELFPAY ==
[2021-01-29] MEDS: Omnipaque 350 MG/ML 50 ML BTL PO (08:44)
[2021-01-29] MEDS: Breeza Beverage 473 ML BTL PO ×2 (08:46)
[2021-01-29] MEDS: Omnipaque 350 MG/ML 100 ML BTL IV (09:54)
--- NOTE | 2021-01-29 09:55 | DI.CT_ITS ---
Exam(s) CT CHEST/ABD/PEL W EXAM: CT CHEST/ABD/PEL W CLINICAL HISTORY: MALIGNANT NEOPLASM PROSTATE, BONE, LIVER, C61, C79.51, C78.7. TECHNIQUE: Imaging Protocol: Axial computed tomography images with coronal and sagittal reformatted images were created and reviewed CONTRAST MATERIAL: Intravenous: Omnipaque 350 Contrast volume:100 ml Oral: Yes COMPARISON: CT CT CHEST/ABD/PEL W from 12/06/2020 FINDINGS: CHEST: LUNGS: Small ground-glass nodular subpleural infiltrate in the superior lingular segment of the left lung is unchanged. There are no new focal pulmonary findings nor pleural effusions. No significant findings in the trachea and mainstem bronchi.. Pulmonary arteries are well opacified. No evidence o f pulmonary emboli. MEDIASTINUM: There is no hilar nor mediastinal adenopathy. Visualized thyroid unremarkable. CARDIAC: Heart size is normal. There is no pericardial effusion.Caliber of the thoracic aorta is wit hin normal limits. 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 There is no encroachment upon the spinal canal.. ABDOMEN: There is no ascites. LIVER: There appears to be mild decrease in size of the multiple previously described metastatic lesi ons throughout the liver. A stable cyst in the right hepatic lobe again noted. GALLBLADDER/BILIARY: No obvious gallbladder pathology. CBD is not dilated. PANCREAS: No evidence of pancreatic mass nor dilatation of the pancreatic duct. SPLEEN: Spleen is not enlarged. There are no intrasplenic lesions. Splenic and portal veins are bernstein nt. ADRENALS: There are no significant adrenal masses. KIDNEYS: Appearance of the kidneys is unchanged. Bilateral nephrostomy tubes with distal pigtails in good position within both renal pelves again noted.. No hydronephrosis. No renal cyst or solid lu al masses. No evidence of subcapsular hematoma no perinephric fluid ABDOMINAL AORTA: Moderate atherosclerotic involvement. No significant aneurysm. LYMPH NODES: There is no retroperitoneal nor paraaortic adenopathy. ABDOMINAL WALL: No evidence of significant anterior abdominal wall hernia. PELVIS: LYMPH NODES: There is no intrapelvic nor inguinal adenopathy. URINARY BLADDER/PROSTATE: Urinary bladder wall is again noted be diffusely thickened and involved by the same large necrotic process involving the prostate and seminal vesicles, these finding remaining unchanged and there is also contiguous invasion of the posterior wall of the rectum again noted. Rec catherine is circumferentially thickened. The above hypodense mass extends to involve the [employer] muscles on either side, more so on the right side. GI: No evidence of appendicitis.Sigmoid thickening probably related to diffuse diverticulosis is agai n noted. 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 No pathologic fractures evident. IMPRESSION: 1. Compared to the prior CT scan of 12/06/2020 there is again noted extensive involvement of the pros hansen, seminal vesicles, and urinary bladder by the previously described large relatively hypodense ma ss which is most probably neoplastic and necrotic neoplastic tissue. Cannot exclude abscess but ther e are no gas bubbles therein. There is also again noted contiguous involvement of the posterior wall of the rectum. 2. The amount of extensive blastic disease throughout the skeleton of the chest abdomen pelvis remain s relatively stable and there is no spinal canal encroachment evident. 3. There appears to be mild improvement in the extensive metastatic lesions in the liver, some of whi ch appear slightly decreased in size. No new hepatic lesions identified. A stable solitary cyst in the liver is again noted, unchanged. 4. Both kidneys again remain well decompressed by well-positioned bilateral nephrostomy tubes. 5. No new intrathoracic findings. Previously described small subpleural infiltrate in the lingular segment of the left lung is again unchanged. No new pulmonary nodules and there are no pleural effus ions nor intrathoracic adenopathy. RADIATION DOSE DELIVERED: 1,732.88mGy.cm Total DLP DATA REPOSITORY: All CT scans at this facility are submitted to the National Radiology Data Registry (NRDR) Dose Index Registry (DIR) with the [employer] ([employer]). RADIATION OPTIMIZATION: All CT scans at this facility use at least one of these dose optimization te chniques: automated exposure control; mA and/or kV adjustment per patient size (includes targeted exa ms where dose is matched to clinical indication); or iterative reconstruction.
== END 2021-01-29 00:45 ==
PROVIDERS: PCP Family Medicine; Visit Provider Internal Medicine Medical Oncology
DX: C61 Malignant neoplasm of prostate (principal); C79.51 Secondary malignant neoplasm of bone; C78.7 Secondary malignant neoplasm of liver and intrahepatic bile duct
CPT/HCPCS: 74177; 71260; J3490; Q9967

== ENCOUNTER 2021-02-05 02:39 | Outpatient (RCR) | payer BC, SELFPAY ==
[2021-01-07 00:06] VITALS: BP 138/79; PULSE 88; RESP 20; TEMP 36.1
[2021-01-15] MEDS: Normal Saline Flush 10 ML SYR IVP (08:12)
[2021-01-15 08:36] LABS: Abs Immature Grans 0.05 10^3/uL (0.0-0.06); Absolute Basophil Count 0.06 10^3/uL (0.0-0.2); Absolute Eosinophil Count 0.04 10^3/uL (0.0-0.7); Absolute Lymphocyte Count 1.25 10^3/uL (1.2-3.4); Absolute Monocyte Count 0.52 10^3/uL (0.1-0.8); Absolute Neutrophil Count 6.85 10^3/uL (1.2-6.7); Basophils % 0.7; Eosinophils % 0.5; HCT 29.8 % (40.0-50.0); Immature Grans % 0.6; Lymphocytes % 14.3; MCH 26.6 pg (27.0-33.0); MCHC 30.2 % (32.0-36.0); MCV 88.2 fL (80-95); MPV 8.8 fL (8.0-11.0); Monocytes % 5.9; Nucleated RBC 0 %; Platelet Count 524 10^3/uL (130-400); RBC 3.38 10^6/uL (4.36-5.78); RDW 17.4 % (11.8-14.1); RDW-SD 55.8 fL; WBC 8.77 10^3/uL (4.4-10.8)
[2021-01-15 08:51] LABS: ALT 16 U/L (16-63); AST 23 U/L (15-37); Albumin 3.2 g/dL (3.4-5.0); Alkaline Phosphatase 138 U/L (46-116); Anion Gap 9.7 mmol/L (3-11); BUN 8 mg/dL (7-18); Bilirubin, Total 0.3 mg/dL (0.2-1.0); CO2 23.3 mmol/L (21.0-32.0); CREATININE 0.8 mg/dL (0.70-1.30); Calcium 8.2 mg/dL (8.5-10.1); Chloride 102 mmol/L (98-107); Glucose 115 mg/dL (74-106); Potassium 3.9 mmol/L (3.5-5.1); Sodium 135 mmol/L (136-145); Total Protein 7.7 g/dL (6.4-8.2)
[2021-01-16 14:40] LABS: PSA, Ultrasensitive 62.8 ng/mL (<= 4.5)
[2021-02-05] MEDS: Normal Saline Flush 10 ML SYR IVP (11:31)
[2021-02-05 11:34] LABS: Abs Immature Grans 0.06 10^3/uL (0.0-0.06); Absolute Basophil Count 0.04 10^3/uL (0.0-0.2); Absolute Eosinophil Count 0.03 10^3/uL (0.0-0.7); Absolute Lymphocyte Count 1.11 10^3/uL (1.2-3.4); Absolute Neutrophil Count 7.85 10^3/uL (1.2-6.7); Basophils % 0.4; Eosinophils % 0.3; HCT 29.1 % (40.0-50.0); HGB 8.9 g/dL (13.5-17.5); Immature Grans % 0.6; Lymphocytes % 11.5; MCH 25.4 pg (27.0-33.0); MCHC 30.6 % (32.0-36.0); MCV 82.9 fL (80-95); MPV 8.7 fL (8.0-11.0); Monocytes % 6.2; Nucleated RBC 0 %; Platelet Count 469 10^3/uL (130-400); RBC 3.51 10^6/uL (4.36-5.78); RDW 18.1 % (11.8-14.1); RDW-SD 54.7 fL; WBC 9.69 10^3/uL (4.4-10.8)
[2021-02-05 11:48] LABS: ALT 15 U/L (16-63); AST 23 U/L (15-37); Alkaline Phosphatase 121 U/L (46-116); Anion Gap 9.2 mmol/L (3-11); BUN 11 mg/dL (7-18); Bilirubin, Total 0.2 mg/dL (0.2-1.0); CO2 23.8 mmol/L (21.0-32.0); CREATININE 0.8 mg/dL (0.70-1.30); Calcium 8.6 mg/dL (8.5-10.1); Chloride 102 mmol/L (98-107); Glucose 115 mg/dL (74-106); Potassium 4.2 mmol/L (3.5-5.1); Sodium 135 mmol/L (136-145); Total Protein 7.9 g/dL (6.4-8.2)
[2021-02-06 18:40] LABS: PSA, Ultrasensitive 61.5 ng/mL (<= 4.5)
== END 2021-02-06 23:59 | disposition home or self-care (01) ==
LOC: INF 02:39
PROVIDERS: PCP Family Medicine; Visit Provider Internal Medicine Medical Oncology
DX: C61 Malignant neoplasm of prostate (principal); D50.0 Iron deficiency anemia secondary to blood loss (chronic); C78.7 Secondary malignant neoplasm of liver and intrahepatic bile duct
CPT/HCPCS: 36415; 80053; 84153; 86900; 86901; 85025

== ENCOUNTER 2021-02-26 03:25 | Outpatient (RCR) | payer BC, SELFPAY ==
[2021-02-07 00:17] VITALS: BP 138/79; PULSE 88; RESP 20; TEMP 36.1
[2021-02-26] MEDS: Normal Saline Flush 10 ML SYR IVP (10:43)
[2021-02-26 10:57] LABS: Absolute Basophil Count 0.06 10^3/uL (0.0-0.2); Absolute Eosinophil Count 0.01 10^3/uL (0.0-0.7); Absolute Lymphocyte Count 1.06 10^3/uL (1.2-3.4); Absolute Monocyte Count 0.62 10^3/uL (0.1-0.8); Basophils % 0.4; Eosinophils % 0.1; HCT 28.3 % (40.0-50.0); HGB 8.6 g/dL (13.5-17.5); Immature Grans % 0.7; Lymphocytes % 7.3; MCH 23.8 pg (27.0-33.0); MCHC 30.4 % (32.0-36.0); MCV 78.2 fL (80-95); MPV 8.8 fL (8.0-11.0); Monocytes % 4.3; Neutrophils % 87.2; Nucleated RBC 0 %; Platelet Count 441 10^3/uL (130-400); RBC 3.62 10^6/uL (4.36-5.78); RDW 18.6 % (11.8-14.1); RDW-SD 53.2 fL; WBC 14.51 10^3/uL (4.4-10.8)
[2021-02-26 11:07] LABS: Absolute Neutrophil Count 12.65 10^3/uL (1.2-6.7)
[2021-02-26 11:26] LABS: ALT 21 U/L (16-63); AST 31 U/L (15-37); Albumin 3.1 g/dL (3.4-5.0); Alkaline Phosphatase 112 U/L (46-116); Anion Gap 12.1 mmol/L (3-11); BUN 14 mg/dL (7-18); Bilirubin, Total 0.3 mg/dL (0.2-1.0); CO2 24.9 mmol/L (21.0-32.0); CREATININE 0.9 mg/dL (0.70-1.30); Calcium 8.9 mg/dL (8.5-10.1); Chloride 102 mmol/L (98-107); Glucose 110 mg/dL (74-106); Sodium 139 mmol/L (136-145); Total Protein 8.4 g/dL (6.4-8.2)
[2021-02-27 14:44] LABS: PSA, Ultrasensitive 83.8 ng/mL (<= 4.5)
== END 2021-03-08 23:59 | disposition home or self-care (01) ==
LOC: INF 03:25
PROVIDERS: PCP Family Medicine; Visit Provider Internal Medicine Medical Oncology
DX: C61 Malignant neoplasm of prostate (principal); D50.0 Iron deficiency anemia secondary to blood loss (chronic); C78.7 Secondary malignant neoplasm of liver and intrahepatic bile duct
CPT/HCPCS: 36415; 80053; 84153; 86900; 86901; 85025

== ENCOUNTER 2021-03-19 01:20 | Outpatient (RCR) | payer BC, SELFPAY ==
[2021-03-09 00:09] VITALS: BP 138/79; PULSE 88; RESP 20; TEMP 36.1
[2021-03-19 11:00] LABS: Abs Immature Grans 0.11 10^3/uL (0.0-0.06); Absolute Basophil Count 0.04 10^3/uL (0.0-0.2); Absolute Lymphocyte Count 1.14 10^3/uL (1.2-3.4); Absolute Monocyte Count 0.68 10^3/uL (0.1-0.8); Basophils % 0.3; Eosinophils % 0.2; HCT 26.9 % (40.0-50.0); HGB 8.1 g/dL (13.5-17.5); Immature Grans % 0.9; MCHC 30.1 % (32.0-36.0); MCV 76.4 fL (80-95); MPV 8.5 fL (8.0-11.0); Monocytes % 5.4; Neutrophils % 84.2; Nucleated RBC 0 %; Platelet Count 486 10^3/uL (130-400); RBC 3.52 10^6/uL (4.36-5.78); RDW 20.1 % (11.8-14.1); RDW-SD 54.8 fL; WBC 12.64 10^3/uL (4.4-10.8)
[2021-03-19 11:13] LABS: ALT 14 U/L (16-63); AST 37 U/L (15-37); Albumin 3.1 g/dL (3.4-5.0); Alkaline Phosphatase 96 U/L (46-116); Anion Gap 10.6 mmol/L (3-11); BUN 15 mg/dL (7-18); Bilirubin, Total 0.3 mg/dL (0.2-1.0); CO2 24.4 mmol/L (21.0-32.0); CREATININE 0.8 mg/dL (0.70-1.30); Chloride 101 mmol/L (98-107); Glucose 124 mg/dL (74-106); Potassium 4.2 mmol/L (3.5-5.1); Sodium 136 mmol/L (136-145); Total Protein 8.2 g/dL (6.4-8.2)
[2021-03-19 11:18] LABS: Absolute Eosinophil Count 0.03 10^3/uL (0.0-0.7); Absolute Neutrophil Count 10.64 10^3/uL (1.2-6.7)
[2021-03-19 11:20] LABS: Anisocytosis 2+; Basophilic Stippling Present; Hypochromasia 2+; Microcytosis 2+; Polychromasia Present
[2021-03-21 00:20] LABS: PSA, Ultrasensitive 109 ng/mL (<= 4.5)
== END 2021-04-08 23:59 | disposition home or self-care (01) ==
LOC: INF 01:20
PROVIDERS: PCP Family Medicine; Visit Provider Internal Medicine Medical Oncology
DX: C61 Malignant neoplasm of prostate (principal); C78.7 Secondary malignant neoplasm of liver and intrahepatic bile duct; D50.0 Iron deficiency anemia secondary to blood loss (chronic)
CPT/HCPCS: 36415; 80053; 84153; 85025

== ENCOUNTER 2021-05-02 02:11 | Outpatient (RCR) | payer BC, SELFPAY ==
[2021-04-09 00:07] VITALS: BP 138/79; PULSE 88; RESP 20; TEMP 36.1
[2021-04-09 12:24] LABS: Abs Immature Grans 0.16 10^3/uL (0.0-0.06); Absolute Basophil Count 0.05 10^3/uL (0.0-0.2); Absolute Eosinophil Count 0.04 10^3/uL (0.0-0.7); Absolute Lymphocyte Count 1.16 10^3/uL (1.2-3.4); Absolute Monocyte Count 0.52 10^3/uL (0.1-0.8); Absolute Neutrophil Count 7.68 10^3/uL (1.2-6.7); Basophils % 0.5; Eosinophils % 0.4; HCT 29.5 % (40.0-50.0); HGB 8.6 g/dL (13.5-17.5); Immature Grans % 1.7; Lymphocytes % 12.1; MCH 22.2 pg (27.0-33.0); MCHC 29.2 % (32.0-36.0); MPV 8.9 fL (8.0-11.0); Monocytes % 5.4; Neutrophils % 79.9; Nucleated RBC 0 %; RBC 3.88 10^6/uL (4.36-5.78); RDW 21.2 % (11.8-14.1); RDW-SD 57.1 fL; WBC 9.61 10^3/uL (4.4-10.8)
[2021-04-09 12:38] LABS: Anisocytosis 2+; Diff Comment Diff Reviewed; Hypochromasia 2+; Platelet Count 411 10^3/uL (130-400); Polychromasia Present
[2021-04-09 12:39] LABS: Poikilocytes 2+
[2021-04-09 12:42] LABS: ALT 22 U/L (16-63); AST 120 U/L (15-37); Albumin 3.4 g/dL (3.4-5.0); Alkaline Phosphatase 127 U/L (46-116); Anion Gap 13.9 mmol/L (3-11); BUN 16 mg/dL (7-18); Bilirubin, Total 0.4 mg/dL (0.2-1.0); CO2 25.1 mmol/L (21.0-32.0); CREATININE 1.1 mg/dL (0.70-1.30); Calcium 9.2 mg/dL (8.5-10.1); Chloride 97 mmol/L (98-107); Glucose 114 mg/dL (74-106); Sodium 136 mmol/L (136-145); Total Protein 8.8 g/dL (6.4-8.2)
[2021-04-10 11:19] LABS: PSA, Ultrasensitive 261 ng/mL (<= 4.5)
[2021-04-30 11:29] LABS: Abs Immature Grans 0.08 10^3/uL (0.0-0.06); Absolute Basophil Count 0.03 10^3/uL (0.0-0.2); Absolute Eosinophil Count 0.01 10^3/uL (0.0-0.7); Absolute Lymphocyte Count 1.04 10^3/uL (1.2-3.4); Absolute Monocyte Count 0.53 10^3/uL (0.1-0.8); Absolute Neutrophil Count 7.82 10^3/uL (1.2-6.7); Basophils % 0.3; Eosinophils % 0.1; HCT 26.4 % (40.0-50.0); HGB 7.8 g/dL (13.5-17.5); Immature Grans % 0.8; Lymphocytes % 10.9; MCH 23.1 pg (27.0-33.0); MCHC 29.5 % (32.0-36.0); MCV 78.1 fL (80-95); MPV 9.1 fL (8.0-11.0); Monocytes % 5.6; Neutrophils % 82.3; Nucleated RBC 0 %; Platelet Count 443 10^3/uL (130-400); RBC 3.38 10^6/uL (4.36-5.78); RDW 23.6 % (11.8-14.1); RDW-SD 65.4 fL; WBC 9.51 10^3/uL (4.4-10.8)
[2021-04-30 11:38] LABS: Diff Comment RBC Morph Reviewed
[2021-04-30 11:40] LABS: Anisocytosis 2+; Hypochromasia 1+; Microcytosis 1+; Polychromasia Present
[2021-04-30 11:42] LABS: ALT 35 U/L (16-63); AST 127 U/L (15-37); Albumin 3.3 g/dL (3.4-5.0); Alkaline Phosphatase 287 U/L (46-116); Anion Gap 13.1 mmol/L (3-11); BUN 12 mg/dL (7-18); Bilirubin, Total 0.5 mg/dL (0.2-1.0); CO2 23.9 mmol/L (21.0-32.0); CREATININE 0.9 mg/dL (0.70-1.30); Calcium 8.6 mg/dL (8.5-10.1); Chloride 99 mmol/L (98-107); Glucose 112 mg/dL (74-106); Sodium 136 mmol/L (136-145); Total Protein 8.4 g/dL (6.4-8.2)
[2021-05-02] VITALS (9 sets, daily range): BP systolic 128–154; BP diastolic 69–78; PULSE 90–120; RESP 20–22; TEMP 36.4–37.2; O2SAT 100
[2021-05-02] MEDS: Normal Saline Flush 10 ML SYR IVP (12:49)
== END 2021-05-08 23:59 | disposition home or self-care (01) ==
LOC: INF 02:11
PROVIDERS: PCP Family Medicine; Visit Provider Internal Medicine Medical Oncology
DX: C61 Malignant neoplasm of prostate (principal); D50.0 Iron deficiency anemia secondary to blood loss (chronic); C79.89 Secondary malignant neoplasm of other specified sites
CPT/HCPCS: 36415; 36430; 80053; 84153; 86850; 86900; 86901; 86920; 85025; P9016